=== PATIENT | female | born 1980 | race Caucasian/White ===

== ENCOUNTER 2016-12-26 17:28 | Emergency (ER) | payer OTHER ==
[~2016-12-26] VITALS: Ht 162.6 cm; Wt 51.7 kg
[~2016-12-26 17:28] MED LIST: CEPH-264 PO; INSU100I13 SQ; INSU100I17 SQ; INSU100V31 SQ; LISI10TA2 PO
[2016-12-26] MEDS ORDERED: ONDANSETRON ODT 4 MG TAB.RAPDIS PO ONE (18:00)
[2016-12-26] MEDS ORDERED: IV NORMAL SALINE 1,000ML 1,000 ML IV ONE (18:00)
[2016-12-26 19:32] LABS: BASO % 0 % (0-3); EOS % 0 % (0-3); HEMATOCRIT 38.8 % (36.0-47.0); HEMOGLOBIN 13.3 g/dL (12.0-15.5); LYMPH # 0.8 x10^3/uL (1.0-4.8); LYMPH % 11 % (24-48); MEAN CORPUSCULAR HEMOGLOBIN 34 pg (25-35); MEAN CORPUSCULAR HGB CONC 34 g/dL (31-37); MEAN CORPUSCULAR VOLUME 99 fL (79-100); MONO # 0.3 x10^3/uL (0.0-1.1); MONO % 3 % (0-9); NEUT # 6.3 x10^3uL (1.8-7.7); NEUT % 85 % (31-73); PLATELET COUNT 169 x10^3/uL (140-400); RED BLOOD COUNT 3.91 x10^6/uL (3.50-5.40); RED CELL DISTRIBUTION WIDTH 13.6 % (11.5-14.5); WHITE BLOOD COUNT 7.5 x10^3/uL (4.0-11.0)
[2016-12-26 19:40] LABS: ALBUMIN/GLOBULIN RATIO 0.8 (1.0-1.7); CREATININE 0.5 mg/dL (0.6-1.0); GFR 138.1; POTASSIUM 3.8 mmol/L (3.5-5.1); TOTAL BILIRUBIN 0.8 mg/dL (0.2-1.0); TOTAL PROTEIN 6.7 g/dL (6.4-8.2)
[2016-12-26 20:06] LABS: BILIRUBIN,URINE NEG (NEG); CLARITY,URINE CLEAR; COLOR,URINE YELLOW; GLUCOSE,URINE 500 mg/dL (NEG); NITRITE,URINE NEG (NEG); UROBILINOGEN,URINE 2 mg/dL (0.2 mg/dL)
[2016-12-26 20:07] LABS: BACTERIA,URINE 0 /HPF (0-FEW); SQUAMOUS EPITHELIAL CELL,UR FEW /LPF
[2016-12-26] MEDS ORDERED: ACETAMINOPHEN 325 MG TABLET PO ONE ×2 (21:49→22:30)
[2016-12-26 22:34] VITALS: BP 116/68
[2016-12-26] MEDS ORDERED: PROMETHAZINE 25MG 4TABLET STARTPACK. PO ONE (23:00)
--- NOTE | 2016-12-27 04:49 | ED.ADGEN ---
Past History Past Medical History: Asthma, Diabetes, Pancreatitis Past Surgical History: Cholecystectomy Alcohol Use: None Drug Use: Other Adult General Chief Complaint Chief Complaint Abdominal pain HPI HPI Patient is a 36-year-old female with history of asthma, insulin-dependent diabetes prior cholecystectomy and current methamphetamine user presents with epigastric abdominal pain. Symptoms began earlier today and accompanied with nausea vomiting. Patient has headache, chest pain, shortness of breath, fever, chills, sweats, diarrhea or constipation. Pain is worse with palpation and movement. 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 Evaluation limited as patient appears to be high on methamphetamines.[] Review of Systems Review of Systems Review symptoms as per history of present illness. All other review symptoms are negative. Current Medications Current Medications Current Medications Medications (Trade) Dose Ordered Sig/Taryn Start Time Stop Time Status Last Admin Dose Admin Acetaminophen (Tylenol) 650 mg 1X ONCE 12/26/16 22:30 12/26/16 22:31 DC 12/26/16 22:30 650 MG Ondansetron HCl (Zofran Odt) 4 mg 1X ONCE 12/26/16 18:00 12/26/16 18:01 DC 12/26/16 18:00 4 MG Promethazine HCl (Starter Pack - Phenergan) 1 startpack 1X ONCE 12/26/16 23:00 12/26/16 23:00 DC 12/26/16 22:42 1 STARTPACK Sodium Chloride 1,000 ml @ 1,000 mls/hr 1X ONCE 12/26/16 18:00 12/26/16 18:59 DC 12/26/16 19:20 1,000 MLS/HR Allergies Allergies Allergies Coded Allergies Type Severity Reaction Last Updated Verified morphine Adverse Reaction Intermediate Nausea and Vomiting 06/01/16 Yes Physical Exam Physical Exam Constitutional: Well developed, well nourished, no acute distress, non-toxic appearance. [] HENT: Normocephalic, atraumatic, bilateral external ears normal, oropharynx moist, no oral exudates, nose normal. [] Eyes: PERRLA, EOMI, conjunctiva normal, no discharge. [] Neck: Normal range of motion, no tenderness, supple, no stridor. [] Cardiovascular: Tachycardic[] Lungs & Thorax: Bilateral breath sounds clear to auscultation [] Abdomen: Bowel sounds normal, soft, no tenderness, no masses, no pulsatile masses. [] Skin: Warm, dry, no erythema, no rash. [] Back: No tenderness, no CVA tenderness. [] Extremities: No tenderness, no cyanosis, no clubbing, ROM intact, no edema. [] Neurologic: Alert and oriented X 3, normal motor function, normal sensory function, no focal deficits noted. [] Psychologic: Anxious. [] Current Patient Data Vital Signs Vital Signs Date Time Temp Pulse Resp B/P (MAP) Pulse Ox O2 Delivery O2 Flow Rate FiO2 12/26/16 22:34 128 16 116/68 (84) 97 12/26/16 17:28 100.4 Room Air Lab Results Laboratory Tests Test 12/26/16 19:00 12/26/16 19:20 12/26/16 19:42 White Blood Count 7.5 x10^3/uL (4.0-11.0) Red Blood Count 3.91 x10^6/uL (3.50-5.40) Hemoglobin 13.3 g/dL (12.0-15.5) Hematocrit 38.8 % (36.0-47.0) Mean Corpuscular Volume 99 fL (79-100) Mean Corpuscular Hemoglobin 34 pg (25-35) Mean Corpuscular Hemoglobin Concent 34 g/dL (31-37) Red Cell Distribution Width 13.6 % (11.5-14.5) Platelet Count 169 x10^3/uL (140-400) Neutrophils (%) (Auto) 85 % (31-73) H Lymphocytes (%) (Auto) 11 % (24-48) L Monocytes (%) (Auto) 3 % (0-9) Eosinophils (%) (Auto) 0 % (0-3) Basophils (%) (Auto) 0 % (0-3) Neutrophils # (Auto) 6.3 x10^3uL (1.8-7.7) Lymphocytes # (Auto) 0.8 x10^3/uL (1.0-4.8) L Monocytes # (Auto) 0.3 x10^3/uL (0.0-1.1) Eosinophils # (Auto) 0.0 x10^3/uL (0.0-0.7) Basophils # (Auto) 0.0 x10^3/uL (0.0-0.2) Sodium Level 135 mmol/L (136-145) L Potassium Level 3.8 mmol/L (3.5-5.1) Chloride Level 98 mmol/L (98-107) Carbon Dioxide Level 30 mmol/L (21-32) Anion Gap 7 (6-14) Blood Urea Nitrogen 9 mg/dL (7-20) Creatinine 0.5 mg/dL (0.6-1.0) L Estimated GFR (Cockcroft-Gault) 138.1 BUN/Creatinine Ratio 18 (6-20) Glucose Level 151 mg/dL (70-99) H Calcium Level 9.0 mg/dL (8.5-10.1) Total Bilirubin 0.8 mg/dL (0.2-1.0) Aspartate Amino Transferase (AST) 38 U/L (15-37) H Alanine Aminotransferase (ALT) 70 U/L (14-59) H Alkaline Phosphatase 212 U/L (46-116) H Troponin I Quantitative < 0.017 ng/mL (0-0.055) Total Protein 6.7 g/dL (6.4-8.2) Albumin 3.0 g/dL (3.4-5.0) L Albumin/Globulin Ratio 0.8 (1.0-1.7) L Lipase 52 U/L (73-393) L Urine Collection Type U cath Urine Color Yellow Urine Clarity Clear Urine pH 8.5 Urine Specific Sterling 1.015 Urine Protein 100 mg/dl (NEG-TRACE) Urine Glucose (UA) 500 mg/dL (NEG) Urine Ketones (Stick) 40 mg/dL (NEG) Urine Blood Neg (NEG) Urine Nitrite Neg (NEG) Urine Bilirubin Neg (NEG) Urine Urobilinogen Dipstick 2 mg/dL (0.2 mg/dL) Urine Leukocyte Esterase Neg (NEG) Urine RBC 1-2 /HPF (0-2) Urine WBC 1-4 /HPF (0-4) Urine Squamous Epithelial Cells Few /LPF Urine Bacteria 0 /HPF (0-FEW) Urine Mucus Marked /LPF POC Urine HCG, Qualitative hcg negative (Negative) EKG EKG [] Radiology/Procedures Radiology/Procedures [] Course & Med Decision Making Course & Med Decision Making Pertinent Labs and Imaging studies reviewed. (See chart for details) [Patient tachycardic and febrile with diffuse abdominal pain, tenderness. Nausea medication and Tylenol given with symptomatic improvement. Additional workup including imaging studies offered in the emergency department. Patient declines, states she feels better prefers to follow-up with PCP. Explained to the patient to the presence of methamphetamines in her system I cannot rule out a more serious diagnosis. Patient verbalizes understanding of limitations of today's evaluation. Return precautions reviewed.] Final Impression Final Impression [1 acute febrile illness 2. abdominal pain 3. nausea 3, methamphetamine abuse ] Problems: Dragon Disclaimer Dragon Disclaimer This electronic medical record was generated, in whole or in part, using a voice recognition dictation system. YRN BAUTISTA DO Dec 27, 2016 04:49
== END 2016-12-26 22:33 | disposition home or self-care (01) ==
LOC: ER 17:28
DX: F15.10 Other stimulant abuse, uncomplicated (principal); R10.13 Epigastric pain; R11.0 Nausea; R50.9 Fever, unspecified; E11.9 Type 2 diabetes mellitus without complications; J45.909 Unspecified asthma, uncomplicated; Z90.49 Acquired absence of other specified parts of digestive tract; Z79.4 Long term (current) use of insulin; Z88.5 Allergy status to narcotic agent
CPT/HCPCS: 36415; 80053; 81001; 81025; 83690; 84484; 85025; 96360; 96361; 99285; Q0162; J7030

== ENCOUNTER 2017-07-22 10:59 | Inpatient (IN) | payer OTHER ==
[~2017-07-22] VITALS: Ht 162.6 cm; Wt 49.9 kg
[2017-07-22] VITALS (10 sets, daily range): BP systolic 90–117; BP diastolic 50–77
[2017-07-22] MEDS ORDERED: IV NORMAL SALINE 1,000ML 1,000 ML IV SCH ×2 (11:05→15:24)
[2017-07-22] MEDS ORDERED: 0.9 % SODIUM CHLORIDE 10 ML DISP.SYRIN. IV PRN (11:15)
[2017-07-22] MEDS ORDERED: ONDANSETRON PF 4 MG/2 ML VIAL. IV ONE (11:45)
[2017-07-22] MEDS ORDERED: INSULIN REGULAR 100 UNIT/ML 10ML VIAL. IV ONE ×2 (11:45→12:00)
[2017-07-22] MEDS ORDERED: ONDANSETRON ODT 4 MG TAB.RAPDIS PO ONE (12:00)
[2017-07-22 12:19] LABS: BGAS PH 7.12 (7.35-7.45)
[2017-07-22] MEDS ORDERED: IV NORMAL SALINE 1,000ML 1,000 ML IV ONE (12:30)
[2017-07-22 12:34] LABS: BASO % 0 % (0-3); EOS % 0 % (0-3); HEMATOCRIT 45.8 % (36.0-47.0); HEMOGLOBIN 14.3 g/dL (12.0-15.5); LYMPH # 1.3 x10^3/uL (1.0-4.8); LYMPH % 20 % (24-48); MEAN CORPUSCULAR HEMOGLOBIN 34 pg (25-35); MEAN CORPUSCULAR HGB CONC 31 g/dL (31-37); MEAN CORPUSCULAR VOLUME 109 fL (79-100); MONO # 0.3 x10^3/uL (0.0-1.1); MONO % 5 % (0-9); NEUT # 4.8 x10^3uL (1.8-7.7); NEUT % 75 % (31-73); PLATELET COUNT 272 x10^3/uL (140-400); RED BLOOD COUNT 4.21 x10^6/uL (3.50-5.40); RED CELL DISTRIBUTION WIDTH 16.2 % (11.5-14.5); WHITE BLOOD COUNT 6.5 x10^3/uL (4.0-11.0)
[2017-07-22 12:44] LABS: ALBUMIN 3.6 g/dL (3.4-5.0); ALBUMIN/GLOBULIN RATIO 0.9 (1.0-1.7); ALK PHOS 347 U/L (46-116); ALT (SGPT) 126 U/L (14-59); ANION GAP 32 (6-14); AST (SGOT) 43 U/L (15-37); BLOOD UREA NITROGEN 24 mg/dL (7-20); BUN/CREATININE RATIO 27 (6-20); CALCIUM 9.5 mg/dL (8.5-10.1); CHLORIDE 90 mmol/L (98-107); CREATININE 0.9 mg/dL (0.6-1.0); GFR 69.7; LIPASE 78 U/L (73-393); MAGNESIUM 2.1 mg/dL (1.8-2.4); POTASSIUM 4.8 mmol/L (3.5-5.1); SODIUM 130 mmol/L (136-145); TOTAL PROTEIN 7.4 g/dL (6.4-8.2)
--- NOTE | 2017-07-22 12:46 | PHYS DOC ---
Past History Past Medical History: Asthma, Diabetes, Pancreatitis Past Surgical History: Cholecystectomy Smoking: Cigarettes Alcohol Use: None Drug Use: Other Adult General Chief Complaint Chief Complaint: BLOOD SUGAR PROBLEM HPI HPI 37-year-old female patient with history of type 1 diabetes mellitus on insulin and IV methamphetamine abuse states she had her insulin last night by her boyfriend but this morning she was not unable to find her insulin and had multiple episodes of vomiting and abdominal pain and generalized weakness. Patient states she had history of previous hospitalization with DKA. She denies fever and chills, chest pain, shortness of breath, urinary symptom, focal neuro deficit. Review of Systems Review of Systems Constitutional: Denies fever or chills [] Eyes: Denies change in visual acuity, redness, or eye pain [] HENT: Denies nasal congestion or sore throat [] Respiratory: Denies cough or shortness of breath [] Cardiovascular: No additional information not addressed in HPI [] GI: Reports abdominal pain, nausea, vomiting, denies bloody stools or diarrhea [ ] : Denies dysuria or hematuria [] Musculoskeletal: Denies back pain or joint pain [] Integument: Denies rash or skin lesions [] Neurologic: Denies headache, focal weakness or sensory changes [] Endocrine: Denies polyuria or polydipsia [] All other systems were reviewed and found to be within normal limits, except as documented in this note. Current Medications Current Medications Current Medications Medications (Trade) Dose Ordered Sig/Taryn Start Time Stop Time Status Last Admin Dose Admin Insulin Human Regular (NovoLIN R) 20 unit 1X ONCE 07/22/17 12:00 07/22/17 12:01 DC 07/22/17 11:39 20 UNIT Insulin Human Regular 150 unit/ Sodium Chloride 151.5 ml @ 5 mls/hr 1X ONCE 07/22/17 13:00 07/23/17 19:17 Ondansetron HCl (Zofran Odt) 8 mg 1X ONCE 07/22/17 12:00 07/22/17 12:01 DC 07/22/17 11:41 8 MG Ondansetron HCl (Zofran) 4 mg 1X ONCE 07/22/17 11:45 07/22/17 11:46 DC 07/22/17 12:12 4 MG Sodium Chloride 1,000 ml @ 1,000 mls/hr 1X ONCE 07/22/17 12:30 07/22/17 13:29 Sodium Chloride (Normal Saline Flush) 10 ml QSHIFT PRN 07/22/17 11:15 Allergies Allergies Allergies Coded Allergies Type Severity Reaction Last Updated Verified morphine Adverse Reaction Intermediate Nausea and Vomiting 06/01/16 Yes Physical Exam Physical Exam Constitutional: Moderate distress, non-toxic appearance. [] HENT: Normocephalic, atraumatic, oropharynx dry Eyes: PERRLA, EOMI, conjunctiva normal, no discharge. [] Neck: Normal range of motion, no tenderness, supple, no stridor. [] Cardiovascular:Heart rate regular rhythm, no murmur [] Lungs & Thorax: Bilateral breath sounds clear to auscultation [] Abdomen: Bowel sounds normal, soft, no tenderness, no masses, no pulsatile masses. [] Skin: Warm, dry, no erythema, no rash. [] Back: No tenderness, no CVA tenderness. [] Extremities: No tenderness, no cyanosis, no clubbing, ROM intact, no edema. [] Neurologic: Alert and oriented X 3, normal motor function, normal sensory function, no focal deficits noted. [] Psychologic: Anxious Current Patient Data Lab Results Laboratory Tests Test 07/22/17 12:00 White Blood Count 6.5 x10^3/uL (4.0-11.0) Red Blood Count 4.21 x10^6/uL (3.50-5.40) Hemoglobin 14.3 g/dL (12.0-15.5) Hematocrit 45.8 % (36.0-47.0) Mean Corpuscular Volume 109 fL (79-100) H Mean Corpuscular Hemoglobin 34 pg (25-35) Mean Corpuscular Hemoglobin Concent 31 g/dL (31-37) Red Cell Distribution Width 16.2 % (11.5-14.5) H Platelet Count 272 x10^3/uL (140-400) Neutrophils (%) (Auto) 75 % (31-73) H Lymphocytes (%) (Auto) 20 % (24-48) L Monocytes (%) (Auto) 5 % (0-9) Eosinophils (%) (Auto) 0 % (0-3) Basophils (%) (Auto) 0 % (0-3) Neutrophils # (Auto) 4.8 x10^3uL (1.8-7.7) Lymphocytes # (Auto) 1.3 x10^3/uL (1.0-4.8) Monocytes # (Auto) 0.3 x10^3/uL (0.0-1.1) Eosinophils # (Auto) 0.0 x10^3/uL (0.0-0.7) Basophils # (Auto) 0.0 x10^3/uL (0.0-0.2) Blood pH 7.12 (7.35-7.45) *L Blood Gas PCO2 24 mmHg (35-45) L Blood Gas PO2 102 mmHg (80-100) H Blood Gas HCO3 8 mmol/L (22-26) L Arterial Bld O2 Saturation (Calc) 96 % (92-99) FiO2 21 % Acetone Level Mod pos (NEG) EKG EKG [] Radiology/Procedures Radiology/Procedures [] Course & Med Decision Making Course & Med Decision Making Pertinent Labs reviewed. (See chart for details) Evaluation of patient in ER showed 37-year-old male patient with history of IV drug abuse and type 1 diabetes complaining of high blood sugar and mesentery insulin. Patient had sign of DKA tachycardia and dry oral mucosa. Patient was very [place] and treated with oral Zofran and insulin subcutaneous before having the IV line accessed but she vomited the medication. Patient had IV access and had IV insulin and IV fluid with Zofran and was able to fall asleep. Insulin drip was started and patient admitted to ICU. Dr. Shah informed at 1235 and agreed with plan of care. Dragon Disclaimer Dragon Disclaimer This electronic medical record was generated, in whole or in part, using a voice recognition dictation system. Departure Departure: Impression: Primary Impression: DKA (diabetic ketoacidoses) Additional Impressions: Methamphetamine abuse Nausea and vomiting Renal insufficiency Noncompliance with diabetes treatment Abnormal liver function tests Disposition: 09 ADMITTED INPATIENT (at 1235) Admitting Physician: Juan Shah Condition: GUARDED Referrals: PCP,TERESA (PCP) Critical Care Time Critical care time was [90] minutes exclusive of procedures. Problem Qualifiers MATTHIEU MIRZA MD Jul 22, 2017 12:46
[2017-07-22 12:47] LABS: GLUCOSE 748 mg/dL (70-99)
[2017-07-22 12:48] LABS: CARBON DIOXIDE 8 mmol/L (21-32)
[2017-07-22] MEDS: IV NORMAL SALINE 1,000ML 1,000 ML IV SCH ×3 (12:48→22:48)
[2017-07-22] MEDS ORDERED: ONDANSETRON PF 4 MG/2 ML VIAL. IV PRN (13:00)
[2017-07-22] MEDS ORDERED: INSULIN REGULAR 150 UNIT in 0.9 % SODIUM CHLORIDE 150ML 150 ML IV ONE (13:00)
[2017-07-22] MEDS ORDERED: INSULIN REGULAR 150 UNIT in 0.9 % SODIUM CHLORIDE 150ML 150 ML IV PRN ×2 (13:00→15:30)
[2017-07-22 14:44] LABS: BARBITURATES NEG (NEG); BENZODIAZEPINES NEG (NEG); CANNABINOIDS NEG (NEG); COCAINE NEG (NEG); METHADONE NEG (NEG); OPIATES NEG (NEG); PHENCYCLIDINE NEG (NEG)
[2017-07-22 14:45] LABS: AMPHETAMINE/METHAMPHETAMINE POS (NEG)
[2017-07-22 14:54] LABS: BILIRUBIN,URINE NEG (NEG); CLARITY,URINE CLOUDY; COLOR,URINE YELLOW; GLUCOSE,URINE 500 mg/dL (NEG); NITRITE,URINE NEG (NEG); RBC,URINE TNTC /HPF (0-2); UROBILINOGEN,URINE 0.2 mg/dL (0.2 mg/dL)
[2017-07-22 14:55] LABS: BACTERIA,URINE 0 /HPF (0-FEW); SQUAMOUS EPITHELIAL CELL,UR OCC /LPF; U PREG PATIENT NEGATIVE (NEG)
[2017-07-22] MEDS ORDERED: MAGNESIUM SULFATE 2GM 50 ML IV PRN (15:30)
[2017-07-22 18:32] LABS: CALCIUM 8.2 mg/dL (8.5-10.1); GFR 61.7; POTASSIUM 4.5 mmol/L (3.5-5.1)
--- NOTE | 2017-07-22 19:08 | PN ---
DATE: 07/22/2017 HISTORY OF PRESENT ILLNESS: The patient is a 37-year-old female patient who came to the Emergency Room complaining of recurrent bouts of nausea and vomiting, and was found to be in diabetic ketoacidosis. Her toxic screen is positive for methamphetamine, and she was found also to be in impaired liver enzymes. The patient was very drowsy and sleepy, does not give any useful information. PAST MEDICAL HISTORY: Significant for type 1 diabetes, bronchial asthma, and hypertension. PAST SURGICAL HISTORY: Unremarkable. FAMILY HISTORY: Unobtainable. 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 She smokes 1 pack per day. She has methamphetamine problem, had been clean for a few years, but has relapsed recently. Denies any other drug abuse. ALLERGIES: SHE IS ALLERGIC TO MORPHINE. MEDICATIONS: She is currently on following medications: She is on cephalexin 500 mg 3 times a day, lisinopril 10 mg once a day. She is on NovoLog FlexPen 8 units before meals and Lantus SoloSTAR insulin 20 units at bedtime. REVIEW OF SYSTEMS: As per history of present illness, mainly nausea, vomiting, and abdominal pain. PHYSICAL EXAMINATION: GENERAL: When I examined her, she was resting, slightly propped up in bed, no apparent distress. No pallor, jaundice, cyanosis, or thyromegaly. No jugular venous distension. No limb edema. VITAL SIGNS: Her heart rate was 125, blood pressure was 101/67, temperature was 97.7, respiratory rate was 18 and oxygen saturation was 94% on room air. HEAD, EYES, EARS, NOSE, AND THROAT: Showed normocephalic, atraumatic. NECK: Supple. HEART: Showed normal first and second heart sounds with no gallop, rub or murmur. CHEST: Clear to auscultation. No crepitation or rhonchi. ABDOMEN: Scaphoid, soft, nontender. NEUROLOGIC: She was somewhat lethargic, but arousable. She opens eyes and drifts back to sleep. However, all her cranial nerves are intact. EXTREMITIES: She moves extremities without difficulty. LABORATORY AND DIAGNOSTIC DATA: While in the Emergency Room, she had lab works including white cell count of 6500, hemoglobin 14, hematocrit 45, MCV 109 and platelet count of 272,000. Her blood gases showed a pH of 7.12, pCO2 of 24, pO2 102, bicarbonate 8, and oxygen saturation was 96% on room air. Chemistry showed serum sodium of 130, potassium 4.8, chloride 90, bicarbonate 8, anion gap of 32, BUN 24, creatinine 0.9, estimated GFR was 69 mL per minute. Her glucose was 748. Her calcium was 9.5, phosphorus 6, magnesium was 2.1. Total bilirubin is normal. AST, ALT, alkaline phosphatase are all elevated. Her total protein was 7.4, albumin was 3.6. Serum lipase was 78. Urinalysis showed urine was yellow, cloudy with pH of 5, specific gravity of 1.020. The urine showed trace of protein, large amount of glucose, large amount of ketones, large amount of blood, negative for nitrite and leukocyte esterase, too numerous to count rbc's, 1-4 wbc's, occasional squamous epithelial cells and negative bacteria. Her urine toxicology screen was positive for methamphetamine and moderate amount of acetone, negative for all other drugs. ASSESSMENT AND PLAN: In summary, this is a 37-year-old female patient who yet again came with another episode of diabetic ketoacidosis. She was positive ____ methamphetamine drug abuse. She was always in diabetic ketoacidosis. She was started on IV fluid and insulin drip as per diabetic ketoacidosis protocol. She obviously has noncompliance with diabetes treatment and renal insufficiency. We will monitor her blood sugar and electrolytes and replenish as needed. DANIELE VERDUZCO MD DR: SJ/philip JOB#: [id number] / [id number]
[2017-07-22 22:07] LABS: CALCIUM 7.6 mg/dL (8.5-10.1); CREATININE 0.8 mg/dL (0.6-1.0); GFR 79.9; POTASSIUM 4.1 mmol/L (3.5-5.1)
[2017-07-22] MEDS: IV DEXTROSE 5 %-0.45 % NACL 1,000 ML IV SCH (23:28)
[2017-07-23] VITALS (13 sets, daily range): BP systolic 90–123; BP diastolic 55–84
[2017-07-23 01:32] LABS: CALCIUM 7.3 mg/dL (8.5-10.1); CREATININE 0.9 mg/dL (0.6-1.0); GFR 69.7
[2017-07-23] MEDS: IV DEXTROSE 5 %-0.45 % NACL 1,000 ML IV SCH (03:10)
[2017-07-23] MEDS: IV NORMAL SALINE 1,000ML 1,000 ML IV SCH ×4 (03:48→16:54)
[2017-07-23 06:46] LABS: CALCIUM 7.5 mg/dL (8.5-10.1); CREATININE 0.8 mg/dL (0.6-1.0); GFR 79.9; POTASSIUM 3.4 mmol/L (3.5-5.1)
[2017-07-23] MEDS: INSULIN ASPART 300 UNITS/3 ML INSULN.PEN SQ SCH ×3 (07:30→16:24)
[2017-07-23] MEDS ORDERED: INSULIN ASPART 300 UNITS/3 ML INSULN.PEN SQ SCH (07:30)
[2017-07-23] MEDS ORDERED: IV NORMAL SALINE 1,000ML 1,000 ML IV ONE (07:45)
[2017-07-23] MEDS: POTASSIUM CHLORIDE 20 MEQ TABLET.ER. PO SCH (07:49)
[2017-07-23] MEDS: INSULIN ASPART 300 UNITS/3 ML INSULN.PEN SQ PRN (11:12)
[2017-07-23] MEDS ORDERED: INSULIN GLARGINE 300 UNITS/3 ML INSULN.PEN. SQ SCH (21:00)
[2017-07-24] VITALS: BP 120/81
--- NOTE | 2017-07-24 00:02 | PN ---
DATE: 07/23/2017 SUBJECTIVE: The patient is resting flat, comfortably in bed, in no apparent distress, sleepy, but arousable. Questioning her, denied any complaint except that she is tired. Her blood sugar has improved. Her anion gap has normalized. PHYSICAL EXAMINATION: GENERAL: When I examined her this morning, she looked well and was clearly in no apparent respiratory distress, no pallor, jaundice, cyanosis, or thyromegaly. No jugular venous distension. No lower limb edema. VITAL SIGNS: Her heart rate was 101, blood pressure 109/68, temperature was 98.2, respiratory rate was 16 and oxygen saturation was 99% on 2 liters of oxygen. HEAD, EYES, EARS, NOSE AND THROAT: Showed normocephalic, atraumatic. NECK: Supple. HEART: Showed normal first and second heart sounds. No gallop, rub or murmur. CHEST: Clear to auscultation. No crepitation or rhonchi. ABDOMEN: Slightly distended, soft, nontender. NEUROLOGIC: She is sleepy, but arousable. All cranial nerves intact. She moves extremities without difficulty. She ambulates without assistance or assistive devices. Her intake over the last 24 hours was 3040, output was 1450. LABORATORY DATA: As of this morning showed that her serum sodium was 138, potassium 3.4, chloride 107, bicarbonate 21, anion gap of 10, BUN 10, creatinine 0.8. Estimated GFR was 80 mL per minute. Her glucose 125 and calcium was 7.5. ASSESSMENT: 1. Diabetic ketoacidosis. 2. Type 1 diabetes mellitus. 3. Methamphetamine abuse disorder. 4. Noncompliance with diabetes treatment. 5. Renal insufficiency. Her creatinine came down from 1-0.8 and her BUN is down from 24-10. PLAN: Blood sugar normalized. The patient should be back on her scheduled NovoLog and Lantus insulin. Encouraged ambulation. If the patient remains stable later today, she can be discharged home. DANIELE VERDUZCO MD DR: SJ/philip JOB#: [id number] / [id number]
[2017-07-24 03:00] VITALS: BP 119/76
[2017-07-24] MEDS: INSULIN ASPART 300 UNITS/3 ML INSULN.PEN SQ PRN (03:30)
[2017-07-24 06:30] VITALS: BP 112/70
[2017-07-24 06:32] LABS: CALCIUM 7.8 mg/dL (8.5-10.1); CREATININE 0.5 mg/dL (0.6-1.0); GFR 137.4; POTASSIUM 3.6 mmol/L (3.5-5.1)
[2017-07-24] MEDS: POTASSIUM CHLORIDE 20 MEQ TABLET.ER. PO SCH (07:49)
[2017-07-24] MEDS: INSULIN ASPART 300 UNITS/3 ML INSULN.PEN SQ SCH (08:37)
--- NOTE | 2017-07-25 00:11 | DS ---
DATE OF DISCHARGE: 07/24/2017 HOSPITAL COURSE: The patient is a 37-year-old female patient, who was admitted originally with diabetic ketoacidosis, recurrent bouts of nausea and vomiting, and she was started on IV fluid and insulin drip and she did well. Her glucose is much better now. Her anion gap was normalized from 32 to 6. Her creatinine came down also from 1 to 0.5. PHYSICAL EXAMINATION: GENERAL: She was awake and alert. When I examined her this morning, she was sitting up in her chair, in her bed in no apparent distress, slightly pale, but no jaundice, cyanosis, or thyromegaly. No jugular venous distension. No lower limb edema. VITAL SIGNS: Her heart rate was 88, blood pressure was 112/70, temperature was 98.2, respiratory rate was 18, and oxygen saturation was 97% on room air. HEAD, EYES, EARS, NOSE AND THROAT: Normocephalic, atraumatic. NECK: Supple. HEART: Showed normal first and second heart sounds with no gallop, rub or murmur. CHEST: Clear to auscultation. No crepitation or rhonchi. ABDOMEN: Scaphoid, soft, nontender. NEUROLOGIC: She is awake, alert, responding appropriately. Cranial nerves intact. EXTREMITIES: She moves extremities without difficulty. She ambulates without assistance or assistive devices. Her intake was 3900, output was 5325. LABORATORY DATA: This morning showed a serum sodium of 140, potassium 3.6, chloride 107, bicarbonate 27, anion gap of 6, BUN 6, creatinine 0.5, estimated GFR was 137 mL per minute, her glucose was 73, calcium was 7.8. Her white cell count was 6500, hemoglobin 14, hematocrit 44, MCV 109 and platelet count of 272,000. DISCHARGE MEDICATIONS: She will be discharged home to continue on NovoLog insulin 8 units subcutaneously before meals and Lantus insulin 20 units at bedtime, lisinopril 10 mg once a day. FINAL DISCHARGE DIAGNOSES: 1. Diabetic ketoacidosis. 2. Type 1 diabetes mellitus, poorly controlled due to noncompliance. 3. Methamphetamine abuse. 4. Nausea and vomiting. DANIELE VERDUZCO MD DR: SJ/philip JOB#: [id number] / [id number]
== END 2017-07-24 11:55 | disposition home or self-care (01) | DRG 682 ==
LOC: ER 10:59 → ICU 14:01
PROVIDERS: ADMIT Internal Medicine; ATTEND Internal Medicine
DX: N17.0 Acute kidney failure with tubular necrosis (principal); E10.10 Type 1 diabetes mellitus with ketoacidosis without coma; F15.10 Other stimulant abuse, uncomplicated; F17.210 Nicotine dependence, cigarettes, uncomplicated; I10 Essential (primary) hypertension; R94.5 Abnormal results of liver function studies; J45.909 Unspecified asthma, uncomplicated; Z79.4 Long term (current) use of insulin; Z91.19 Patient's noncompliance with other medical treatment and regimen; Z88.8 Allergy status to other drugs, medicaments and biological substances; Z90.49 Acquired absence of other specified parts of digestive tract
CPT/HCPCS: 36415; 80048; 80053; 80307; 81001; 81025; 82010; 82553; 82803; 82947; 83690; 83735; 84100; 84484; 85025; 87641; 96361; 96374; 96375; 96376; 99292; 99406; J1815; J2405; Q0162; 99291-25; G0479; J7030

== ENCOUNTER 2017-09-20 07:11 | Emergency (ER) | payer OTHER ==
[~2017-09-20] VITALS: Ht 162.6 cm; Wt 49.9 kg
[2017-09-20] MEDS ORDERED: IV NORMAL SALINE 1,000ML 1,000 ML IV SCH (07:30)
[2017-09-20] MEDS ORDERED: ONDANSETRON PF 4 MG/2 ML VIAL. IV ONE (07:30)
[2017-09-20] MEDS ORDERED: IV NORMAL SALINE 1,000ML 1,000 ML IV ONE ×2 (07:30→08:30)
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
[2017-09-20] MEDS ORDERED: CLINDAMYCIN 600MG PREMIX 50 ML IV ONE (07:45)
[2017-09-20 08:00] LABS: BASO % 1 % (0-3); EOS % 1 % (0-3); HEMATOCRIT 45.8 % (36.0-47.0); HEMOGLOBIN 15.2 g/dL (12.0-15.5); LYMPH # 1.1 x10^3/uL (1.0-4.8); LYMPH % 28 % (24-48); MEAN CORPUSCULAR HEMOGLOBIN 34 pg (25-35); MEAN CORPUSCULAR HGB CONC 33 g/dL (31-37); MEAN CORPUSCULAR VOLUME 102 fL (79-100); MONO # 0.3 x10^3/uL (0.0-1.1); MONO % 7 % (0-9); NEUT # 2.5 x10^3uL (1.8-7.7); NEUT % 64 % (31-73); PLATELET COUNT 177 x10^3/uL (140-400); RED BLOOD COUNT 4.49 x10^6/uL (3.50-5.40); WHITE BLOOD COUNT 3.8 x10^3/uL (4.0-11.0)
--- NOTE | 2017-09-20 08:11 | EKG ---
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
[2017-09-20 08:14] LABS: ALBUMIN 3.1 g/dL (3.4-5.0); ALBUMIN/GLOBULIN RATIO 0.9 (1.0-1.7); CALCIUM 8.1 mg/dL (8.5-10.1); CREATININE 0.9 mg/dL (0.6-1.0); GFR 69.7; POTASSIUM 3.6 mmol/L (3.5-5.1); TOTAL BILIRUBIN 0.6 mg/dL (0.2-1.0); TOTAL PROTEIN 6.6 g/dL (6.4-8.2)
[2017-09-20 08:26] LABS: BGAS PH 7.18 (7.35-7.45)
[2017-09-20] MEDS ORDERED: INSULIN REGULAR VIAL 150 UNIT in 0.9 % SODIUM CHLORIDE 150ML 150 ML IV ONE (08:30)
--- NOTE | 2017-09-20 08:51 | RAD ---
EXAM: Chest, single view. HISTORY: Shortness of breath. COMPARISON: None. FINDINGS: A frontal view of the chest is obtained. There is no infiltrate, effusion or pneumothorax. The heart is normal in size. There are anastomotic sutures within the right lung apex. IMPRESSION: 1. No acute pulmonary finding. 2. Postoperative changes at the right lung apex. Electronically signed by: Luisa Dugan MD (09/20/2017 8:48 AM) [place] [id number]
[2017-09-20 09:16] LABS: AMPHETAMINE/METHAMPHETAMINE POS (NEG); BARBITURATES NEG (NEG); BENZODIAZEPINES NEG (NEG); CANNABINOIDS NEG (NEG); COCAINE NEG (NEG); METHADONE NEG (NEG); OPIATES NEG (NEG); PHENCYCLIDINE NEG (NEG)
[2017-09-20 09:18] LABS: AMYLASE 25 U/L (25-115); LIPASE 127 U/L (73-393)
[2017-09-20 09:23] LABS: BILIRUBIN,URINE NEG (NEG); CLARITY,URINE CLOUDY; COLOR,URINE YELLOW; GLUCOSE,URINE 500 mg/dL (NEG); NITRITE,URINE NEG (NEG); UROBILINOGEN,URINE 0.2 mg/dL (0.2 mg/dL)
[2017-09-20 09:25] LABS: BACTERIA,URINE 0 /HPF (0-FEW); GRANULAR CASTS,URINE OCC /HPF; RBC,URINE OCC /HPF (0-2); SQUAMOUS EPITHELIAL CELL,UR OCC /LPF; WBC,URINE OCC /HPF (0-4)
[2017-09-20 09:26] LABS: HYALINE CASTS, URINE OCC /HPF; U PREG PATIENT NEGATIVE (NEG)
[2017-09-20 09:32] VITALS: BP 121/80
== END 2017-09-20 09:50 | disposition short-term general hospital (02) ==
LOC: ER 07:11
DX: E11.10 Type 2 diabetes mellitus with ketoacidosis without coma (principal); E86.0 Dehydration; S91.002A Unspecified open wound, left ankle, initial encounter; J45.909 Unspecified asthma, uncomplicated; F17.210 Nicotine dependence, cigarettes, uncomplicated; Z88.5 Allergy status to narcotic agent; Z91.041 Radiographic dye allergy status; X58.XXXA Exposure to other specified factors, initial encounter; Y93.89 Activity, other specified; Y99.8 Other external cause status; Y92.89 Other specified places as the place of occurrence of the external cause
CPT/HCPCS: 36415; 36600; 51702; 71045; 80053; 80307; 81001; 81025; 82010; 82150; 82803; 82947; 83605; 83690; 85025; 87040; 93005; 96361; 96365; 96375; 99291; G0480; J1815; J2405; J3490; G0479; J7030

== ENCOUNTER 2018-09-23 12:17 | Emergency (ER) | payer OTHER ==
[2018-09-23 12:32] LABS: BGAS PH 6.94 (7.35-7.45)
[2018-09-23] MEDS: IV NORMAL SALINE 1,000ML 1,000 ML IV SCH ×3 (12:42→15:20)
[2018-09-23] MEDS ORDERED: INSULIN REGULAR VIAL 150 UNIT in 0.9 % SODIUM CHLORIDE 150ML 150 ML IV ONE (12:45)
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
[2018-09-23] MEDS ORDERED: PIPERACILLIN/TAZOBACTAM 4.5 GM in IV NORMAL SALINE 50ML 50 ML IV ONE (13:00)
--- NOTE | 2018-09-23 13:07 | RAD ---
Portable chest, 09/23/2018: HISTORY: Diabetic ketoacidosis Comparison is made to a study from 09/20/2017. The heart size is normal. The patient is rotated to the right. There are surgical sutures in the right apical region medially. No pulmonary infiltrate is seen. There is no evidence of pleural fluid. IMPRESSION: No acute cardiopulmonary abnormality is detected. Electronically signed by: Misael Dill MD (09/23/2018 1:04 PM) [facility]
[2018-09-23] MEDS ORDERED: IV NORMAL SALINE 50ML 50 ML ONE (13:21)
[2018-09-23] MEDS ORDERED: PIPERACILLIN/TAZOBACTAM 4.5 GM VIAL IV ONE (13:21)
[2018-09-23 13:24] LABS: PREG TEST PT QUAL NEGATIVE (NEG)
[2018-09-23 13:34] LABS: ALBUMIN/GLOBULIN RATIO 0.8 (1.0-1.7); ALK PHOS 436 U/L (46-116); ALT (SGPT) 201 U/L (14-59); AST (SGOT) 120 U/L (15-37); BASO # 0.1 x10^3/uL (0.0-0.2); BASO % 1 % (0-3); BLOOD UREA NITROGEN 49 mg/dL (7-20); BUN/CREATININE RATIO 31 (6-20); CALCIUM 7.7 mg/dL (8.5-10.1); CHLORIDE 92 mmol/L (98-107); CREATININE 1.6 mg/dL (0.6-1.0); EOS % 0 % (0-3); GFR 35.7; HEMATOCRIT 41.5 % (36.0-47.0); HEMOGLOBIN 12.3 g/dL (12.0-15.5); LYMPH # 1.6 x10^3/uL (1.0-4.8); LYMPH % 13 % (24-48); MEAN CORPUSCULAR HEMOGLOBIN 35 pg (25-35); MEAN CORPUSCULAR HGB CONC 30 g/dL (31-37); MEAN CORPUSCULAR VOLUME 118 fL (79-100); MONO # 0.2 x10^3/uL (0.0-1.1); MONO % 2 % (0-9); NEUT # 10.4 x10^3uL (1.8-7.7); NEUT % 85 % (31-73); PLATELET COUNT 311 x10^3/uL (140-400); POTASSIUM 4.7 mmol/L (3.5-5.1); RED BLOOD COUNT 3.53 x10^6/uL (3.50-5.40); RED CELL DISTRIBUTION WIDTH 15.8 % (11.5-14.5); SODIUM 129 mmol/L (136-145); TOTAL BILIRUBIN 0.7 mg/dL (0.2-1.0); TOTAL PROTEIN 4.6 g/dL (6.4-8.2); WHITE BLOOD COUNT 12.2 x10^3/uL (4.0-11.0)
[2018-09-23 13:47] LABS: BILIRUBIN,URINE NEG (NEG); CLARITY,URINE HAZY; COLOR,URINE YELLOW; GLUCOSE,URINE 500 mg/dL (NEG)
[2018-09-23 13:48] LABS: AMORPHOUS SEDIMENT,UR PRESENT /HPF; BACTERIA,URINE MOD /HPF (0-FEW); NITRITE,URINE NEG (NEG); SQUAMOUS EPITHELIAL CELL,UR OCC /LPF; UROBILINOGEN,URINE 0.2 mg/dL (0.2 mg/dL); WBC,URINE OCC /HPF (0-4)
[2018-09-23 13:54] LABS: ANION GAP 32 (6-14); CARBON DIOXIDE < 5 mmol/L (21-32)
[2018-09-23 13:55] LABS: GLUCOSE 876 mg/dL (70-99)
[2018-09-23 14:21] LABS: PLT ESTIMATE ADEQUATE (ADEQUATE)
--- NOTE | 2018-09-23 15:10 | EKG ---
[address] [address] Test Date: 2018-09-23 Test Time: 12:25:36 Pat Name: MIKAYLA ALEJANDRA Department: Room: Gender: F Shade Maker: NAN : 1980 Requested By: YOLA LYMAN Order Number: [id number] Reading MD: Measurements Intervals [place] Rate: 87 P: 59 W[place]: 142 QRS: 71 QRSD: 82 T: 46 QT: 406 QTc: 489 Interpretive Statements SINUS RHYTHM PROLONGED QT NO SPECIFIC ECG ABNORMALITIES RI6.01 No previous ECG available for comparison
--- NOTE | 2018-09-23 15:22 | RAD ---
CT of the head without contrast, 09/23/2018: HISTORY: Altered mental status The ventricles are within normal limits in size. There is no shift of the midline structures. A 3 mm focus of increased density is seen centrally in the анна on one axial image. There is no other evidence of intracranial hemorrhage or mass effect. No abnormal extra-axial fluid collection or mass is seen. IMPRESSION: 1. Tiny focus of increased density centrally in the анна raising the possibility of a small hemorrhage versus a calcification. Since this finding is only evident on one image, it could potentially be an artifact. MR scanning is suggested for further evaluation. 2. The noncontrast CT head is otherwise unremarkable. Electronically signed by: Misael Dill MD (09/23/2018 3:19 PM) [facility]
[2018-09-23] MEDS ORDERED: SODIUM BICARB ADULT 8.4% 50 MEQ/50 ML DISP.SYRIN. ONE (16:26)
[2018-09-23] MEDS ORDERED: SODIUM BICARB ADULT 8.4% 50 MEQ/50 ML DISP.SYRIN. IV ONE (16:30)
[2018-09-23 16:35] VITALS: BP 116/62
== END 2018-09-23 16:30 | disposition short-term general hospital (02) ==
LOC: ER 12:17 → EEVIPCON 12:17 → ER 16:30
DX: E10.11 Type 1 diabetes mellitus with ketoacidosis with coma (principal); T68.XXXA Hypothermia, initial encounter; F17.210 Nicotine dependence, cigarettes, uncomplicated; Z91.041 Radiographic dye allergy status; Z88.5 Allergy status to narcotic agent
CPT/HCPCS: 36415; 36600; 51702; 70450; 71045; 80053; 81001; 82010; 82803; 82947; 83605; 84484; 84703; 85025; 87040; 87086; 93005; 96365; 96366; 96368; 96375; 99291; J1815; J2543; J7030

== ENCOUNTER 2019-04-04 11:22 | Emergency (ER) | payer SELFPAY ==
[~2019-04-04] VITALS: Ht 162.6 cm; Wt 50.0 kg
[~2019-04-04 11:22] MED LIST changes: +GABA300C8 PO; +METO10TA81 PO
[2019-04-04] MEDS ORDERED: IV NORMAL SALINE 1,000ML 1,000 ML IV SCH (11:40)
[2019-04-04] MEDS ORDERED: ONDANSETRON PF 4 MG/2 ML VIAL. IVP ONE (11:45)
[2019-04-04 12:04] LABS: BASO % 1 % (0-3); EOS % 1 % (0-3); HEMATOCRIT 44.1 % (36.0-47.0); HEMOGLOBIN 14.9 g/dL (12.0-15.5); LYMPH # 1.2 x10^3/uL (1.0-4.8); LYMPH % 31 % (24-48); MEAN CORPUSCULAR HEMOGLOBIN 32 pg (25-35); MEAN CORPUSCULAR HGB CONC 34 g/dL (31-37); MEAN CORPUSCULAR VOLUME 96 fL (79-100); MONO # 0.3 x10^3/uL (0.0-1.1); MONO % 8 % (0-9); NEUT # 2.4 x10^3uL (1.8-7.7); NEUT % 59 % (31-73); PLATELET COUNT 266 x10^3/uL (140-400); RED BLOOD COUNT 4.61 x10^6/uL (3.50-5.40); RED CELL DISTRIBUTION WIDTH 12.9 % (11.5-14.5)
[2019-04-04 12:19] LABS: CALCIUM 9.5 mg/dL (8.5-10.1); CREATININE 0.8 mg/dL (0.6-1.0); GFR 79.4; POTASSIUM 3.8 mmol/L (3.5-5.1)
--- NOTE | 2019-04-04 12:23 | PHYS DOC ---
Past History Past Medical History: Asthma, Diabetes, Hypertension, Other Past Surgical History: Cholecystectomy, Tubal ligation, Other Smoking: Cigarettes Alcohol Use: None Drug Use: Methamphetamine Adult General Chief Complaint Chief Complaint: DIZZY/LIGHT HEADED HPI HPI Patient is a 38-year-old female who presents with complaint of feeling lightheaded and weak. Patient states that she has been noting elevated blood sugar at home last few days and states that she just ran out of her test strips. Patient states that she has had diarrhea for about a week and yesterday she started with nausea and vomiting. She states that she's been having difficulty in keeping anything down and is afraid to use too much insulin since she ran out of her test strips. She does indicate that she's got some cramping in her abdomen that she rates as moderate. She denies any chest pain or shortness breath. She also denies any fever. Patient states that symptoms are worsened if she tries to eat or drink.[] Review of Systems Review of Systems Constitutional: Denies fever or chills [] Respiratory: Denies cough or shortness of breath [] Cardiovascular: No additional information not addressed in HPI [] GI: Complains of abdominal cramping with vomiting and diarrhea [] Integument: Denies rash or skin lesions [] Neurologic: Denies headache, focal weakness or sensory changes [] All other systems were reviewed and found to be within normal limits, except as documented in this note. Current Medications Current Medications Current Medications Medications (Trade) Dose Ordered Sig/Taryn Start Time Stop Time Status Last Admin Dose Admin Ondansetron HCl (Zofran) 4 mg 1X ONCE 04/04/19 11:45 04/04/19 11:46 DC 04/04/19 11:45 4 MG Sodium Chloride 1,000 ml @ 1,000 mls/hr Q1H 04/04/19 11:40 04/04/19 12:39 04/04/19 11:40 1,000 MLS/HR Allergies Allergies Allergies Coded Allergies Type Severity Reaction Last Updated Verified I S O L A T I O N *CONTACT* Allergy Unknown 11/11/18 Yes morphine Adverse Reaction Intermediate Nausea and Vomiting 11/11/18 Yes Physical Exam Physical Exam Constitutional: Well developed, well nourished, no acute distress, non-toxic appearance. [] HENT: Normocephalic, atraumatic, bilateral external ears normal, oropharynx dry, no oral exudates, nose normal. [] Eyes: PERRLA, EOMI, conjunctiva normal, no discharge. [] Neck: Normal range of motion, no tenderness, supple, no stridor. [] Cardiovascular: Regular rate and rhythm[] Lungs & Thorax: Bilateral breath sounds clear to auscultation [] Abdomen: Bowel sounds normal, soft, with mild epigastric tenderness. [] Skin: Warm, dry, no erythema, no rash. [] Extremities: No tenderness, no cyanosis, no clubbing, ROM intact. [] Neurologic: Alert and oriented X 3, no focal deficits noted. [] Current Patient Data Vital Signs Vital Signs Date Time Temp Pulse Resp B/P (MAP) Pulse Ox O2 Delivery O2 Flow Rate FiO2 04/04/19 11:34 99.0 142 18 98 Room Air 04/04/19 11:31 127/90 (102) Lab Results Laboratory Tests Test 04/04/19 11:34 04/04/19 11:51 Glucose (Fingerstick) 472 mg/dL (70-99) H White Blood Count 4.0 x10^3/uL (4.0-11.0) Red Blood Count 4.61 x10^6/uL (3.50-5.40) Hemoglobin 14.9 g/dL (12.0-15.5) Hematocrit 44.1 % (36.0-47.0) Mean Corpuscular Volume 96 fL (79-100) Mean Corpuscular Hemoglobin 32 pg (25-35) Mean Corpuscular Hemoglobin Concent 34 g/dL (31-37) Red Cell Distribution Width 12.9 % (11.5-14.5) Platelet Count 266 x10^3/uL (140-400) Neutrophils (%) (Auto) 59 % (31-73) Lymphocytes (%) (Auto) 31 % (24-48) Monocytes (%) (Auto) 8 % (0-9) Eosinophils (%) (Auto) 1 % (0-3) Basophils (%) (Auto) 1 % (0-3) Neutrophils # (Auto) 2.4 x10^3uL (1.8-7.7) Lymphocytes # (Auto) 1.2 x10^3/uL (1.0-4.8) Monocytes # (Auto) 0.3 x10^3/uL (0.0-1.1) Eosinophils # (Auto) 0.0 x10^3/uL (0.0-0.7) Basophils # (Auto) 0.0 x10^3/uL (0.0-0.2) EKG EKG [] Radiology/Procedures Radiology/Procedures [] Course & Med Decision Making Course & Med Decision Making Pertinent Labs and Imaging studies reviewed. (See chart for details) [] Dragon Disclaimer Dragon Disclaimer This electronic medical record was generated, in whole or in part, using a voice recognition dictation system. Departure Departure: Impression: Primary Impression: Acute gastroenteritis Additional Impressions: Methamphetamine abuse Type 1 diabetes mellitus Disposition: HOME, SELF-CARE Condition: STABLE Referrals: KASEY COSTA (PCP) Patient Instructions: Hyperglycemia, Viral Gastroenteritis Scripts Diphenoxylate Hcl/Atropine (LOMOTIL TABLET) 1 Each Tablet 1 TAB PO TID PRN for DIARRHEA, #15 TAB Prov: COMPA PADGETT Jr. DO 04/04/19 Ondansetron (ONDANSETRON ODT) 4 Mg Tab.rapdis 1 TAB PO PRN Q6-8HRS PRN for NAUSEA, #12 TAB Prov: COMPA PADGETT Jr. DO 04/04/19 Problem Qualifiers Additional Impressions: Type 1 diabetes mellitus Diabetes mellitus complication status: without complication Qualified Codes: E10.9 - Type 1 diabetes mellitus without complications COMPA PADGETT Jr. DO Apr 04, 2019 12:23
[2019-04-04 12:24] LABS: ALBUMIN/GLOBULIN RATIO 0.9 (1.0-1.7); TOTAL BILIRUBIN 1.1 mg/dL (0.2-1.0); TOTAL PROTEIN 8.3 g/dL (6.4-8.2)
[2019-04-04] MEDS ORDERED: INSULIN REGULAR 100 UNIT/ML 3ML VIAL. IV ONE (12:45)
[2019-04-04 13:07] LABS: BARBITURATES NEG (NEG); BENZODIAZEPINES NEG (NEG); CANNABINOIDS NEG (NEG); COCAINE NEG (NEG); METHADONE NEG (NEG); OPIATES NEG (NEG); PHENCYCLIDINE NEG (NEG)
[2019-04-04 13:08] LABS: AMPHETAMINE/METHAMPHETAMINE POS (NEG)
[2019-04-04 13:21] LABS: BILIRUBIN,URINE NEG (NEG); CLARITY,URINE CLEAR; COLOR,URINE YELLOW; GLUCOSE,URINE >=1000 mg/dL (NEG)
[2019-04-04 13:22] LABS: AMORPHOUS SEDIMENT,UR PRESENT /HPF; BACTERIA,URINE FEW /HPF (0-FEW); HYALINE CASTS, URINE FEW /HPF; NITRITE,URINE NEG (NEG); SQUAMOUS EPITHELIAL CELL,UR FEW /LPF; UROBILINOGEN,URINE 0.2 mg/dL (0.2 mg/dL)
[2019-04-04 13:38] VITALS: BP 111/89
[2019-04-04] MEDS ORDERED: DIPHENOXYLATE/ATROPINE TABLET. PO ONE (13:45)
[2019-04-04] MEDS ORDERED: DIPH1TAB PO (14:03)
[2019-04-04] MEDS ORDERED: ONDA4TAB12 PO (14:03)
== END 2019-04-04 14:38 | disposition home or self-care (01) ==
LOC: ER 11:22
DX: K52.9 Noninfective gastroenteritis and colitis, unspecified (principal); E10.65 Type 1 diabetes mellitus with hyperglycemia; F15.10 Other stimulant abuse, uncomplicated; J45.909 Unspecified asthma, uncomplicated; I10 Essential (primary) hypertension; F17.210 Nicotine dependence, cigarettes, uncomplicated; R10.13 Epigastric pain; Z90.49 Acquired absence of other specified parts of digestive tract; Z98.51 Tubal ligation status; Z91.041 Radiographic dye allergy status; Z88.5 Allergy status to narcotic agent
CPT/HCPCS: 36415; 80053; 80307; 81001; 82010; 82947; 85025; 96361; 96374; 96375; 99285; J1815; J2405; 99284-25; J7030

== ENCOUNTER 2020-01-09 14:26 | Inpatient (IN) | payer SELFPAY ==
[~2020-01-09] VITALS: Ht 162.6 cm; Wt 45.9 kg
[~2020-01-09 14:26] MED LIST changes: +DIPH1TAB PO; +ONDA4TAB12 PO
[2020-01-09] MEDS ORDERED: 0.9 % SODIUM CHLORIDE 10 ML DISP.SYRIN. IV PRN (15:15)
[2020-01-09] MEDS ORDERED: IV NORMAL SALINE 1,000ML 1,000 ML IV ONE ×3 (15:30→17:45)
[2020-01-09 15:31] LABS: BGAS PH 7.49 (7.35-7.45)
--- NOTE | 2020-01-09 15:38 | EKG ---
[facility] ED [facility] [address] [place] [address] Test Date: 2020-01-09 Test Time: 15:14:24 Pat Name: MIKAYLA ALEJANDRA Department: Room: Gender: F Phlebotomist Prn: [place] : 1980 Requested By: PALOMA LEVIN Order Number: [id number] Reading MD: Measurements Intervals [place] Rate: 142 P: NC: QRS: 75 QRSD: 66 T: 158 QT: 324 QTc: 498 Interpretive Statements SUPRAVENTRICULAR TACHYCARDIA LVH WITH REPOLARIZATION ABNORMALITY ABNORMAL ECG RI6.02 No previous ECG available for comparison
[2020-01-09 15:39] LABS: BASO % 1 % (0-3); EOS % 1 % (0-3); HEMATOCRIT 37.6 % (36.0-47.0); HEMOGLOBIN 12.2 g/dL (12.0-15.5); LYMPH # 0.3 x10^3/uL (1.0-4.8); LYMPH % 9 % (24-48); MEAN CORPUSCULAR HEMOGLOBIN 33 pg (25-35); MEAN CORPUSCULAR HGB CONC 33 g/dL (31-37); MEAN CORPUSCULAR VOLUME 100 fL (79-100); MONO # 0.2 x10^3/uL (0.0-1.1); MONO % 5 % (0-9); NEUT # 3.1 x10^3uL (1.8-7.7); NEUT % 85 % (31-73); PLATELET COUNT 212 x10^3/uL (140-400); RED BLOOD COUNT 3.76 x10^6/uL (3.50-5.40); RED CELL DISTRIBUTION WIDTH 17.2 % (11.5-14.5); WHITE BLOOD COUNT 3.7 x10^3/uL (4.0-11.0)
[2020-01-09 15:50] LABS: CALCIUM 8.6 mg/dL (8.5-10.1); CREATININE 0.6 mg/dL (0.6-1.0); GFR 110.2; POTASSIUM 3.6 mmol/L (3.5-5.1)
[2020-01-09 15:55] LABS: PREG TEST PT QUAL NEGATIVE (NEG)
[2020-01-09 15:56] LABS: ALBUMIN 2.7 g/dL (3.4-5.0); ALBUMIN/GLOBULIN RATIO 0.7 (1.0-1.7); TOTAL BILIRUBIN 0.8 mg/dL (0.2-1.0); TOTAL PROTEIN 6.4 g/dL (6.4-8.2)
--- NOTE | 2020-01-09 15:56 | PHYS DOC ---
Past History Past Medical History: Asthma, Diabetes, Hypertension, Other Additional Past Medical Histor: meth abuse Past Surgical History: Cholecystectomy, Tubal ligation, Other Smoking: Cigarettes Alcohol Use: None Drug Use: Methamphetamine General Adult EDM: Chief Complaint: MULTIPLE COMPLAINTS HPI: HPI: Patient is a 39-year-old female who presented to ER with cough fever and chill, general weakness. Patient has history of diabetes, history of methamphetamine abuse. Patient denies any abdominal pain, no headache. Patient says she felt so sick today that she had not used any methamphetamine. Patient denies being exposed to anybody who tested positive for COVID-19. Review of Systems: Review of Systems: Constitutional: POSITIVE FOR fever AND chills Eyes: Denies change in visual acuity HENT: Denies nasal congestion or sore throat Respiratory: Positive for cough or shortness of breath Cardiovascular: Denies chest pain or edema GI: Denies abdominal pain, positive for nausea, vomiting, no bloody stools or diarrhea : Denies dysuria Musculoskeletal: Denies back pain or joint pain Integument: Denies rash Neurologic: Denies headache, focal weakness or sensory changes Endocrine: Denies polyuria or polydipsia Lymphatic: Denies swollen glands Psychiatric: Denies depression or anxiety Heart Score: Risk Factors: Risk Factors: DM, Current or recent (<one month) smoker, HTN, HLP, family history of CAD, obesity. Risk Scores: Score 0 - 3: 2.5% MACE over next 6 weeks - Discharge Home Score 4 - 6: 20.3% MACE over next 6 weeks - Admit for Clinical Observation Score 7 - 10: 72.7% MACE over next 6 weeks - Early Invasive Strategies Current Medications: Current Meds: Current Medications Medications (Trade) Dose Ordered Sig/Taryn Start Time Stop Time Status Last Admin Dose Admin Sodium Chloride 1,000 ml @ 1,000 mls/hr 1X ONCE 01/09/20 15:30 01/09/20 16:29 01/09/20 15:30 1,000 MLS/HR Sodium Chloride (Normal Saline Flush) 10 ml QSHIFT PRN 01/09/20 15:15 Allergies: Allergies: Allergies Coded Allergies Type Severity Reaction Last Updated Verified I S O L A T I O N *CONTACT* Allergy Unknown 11/11/18 Yes morphine Adverse Reaction Intermediate Nausea and Vomiting 11/11/18 Yes Physical Exam: PE: Constitutional: Well developed, cachectic, moderate acute distress, toxic appearance. [] HENT: Normocephalic, atraumatic, bilateral external ears normal, oropharynx moist, dried mucous membrane, nose normal. [] Eyes: PERRLA, EOMI, conjunctiva normal, no discharge. [] Neck: Normal range of motion, no tenderness, supple, no stridor. [] Cardiovascular: sinus tachycardia, regular rhythm, no murmur [] Lungs & Thorax: crackles on right lung , tachypnic. Abdomen: Bowel sounds normal, soft, no tenderness, no masses, no pulsatile fortino s. [] Skin: Warm, dry, no erythema, no rash. [] Back: No tenderness, no CVA tenderness. [] Extremities: No tenderness, no cyanosis, no clubbing, ROM intact, no edema. [] Neurologic: Alert and oriented X 3, normal motor function, normal sensory function, no focal deficits noted. [] Psychologic: Affect normal, judgement normal, mood normal. [] Current Patient Data: Labs: Laboratory Tests Test 01/09/20 15:04 01/09/20 15:13 01/09/20 15:25 White Blood Count 3.7 x10^3/uL (4.0-11.0) L Red Blood Count 3.76 x10^6/uL (3.50-5.40) Hemoglobin 12.2 g/dL (12.0-15.5) Hematocrit 37.6 % (36.0-47.0) Mean Corpuscular Volume 100 fL (79-100) Mean Corpuscular Hemoglobin 33 pg (25-35) Mean Corpuscular Hemoglobin Concent 33 g/dL (31-37) Red Cell Distribution Width 17.2 % (11.5-14.5) H Platelet Count 212 x10^3/uL (140-400) Neutrophils (%) (Auto) 85 % (31-73) H Lymphocytes (%) (Auto) 9 % (24-48) L Monocytes (%) (Auto) 5 % (0-9) Eosinophils (%) (Auto) 1 % (0-3) Basophils (%) (Auto) 1 % (0-3) Neutrophils # (Auto) 3.1 x10^3uL (1.8-7.7) Lymphocytes # (Auto) 0.3 x10^3/uL (1.0-4.8) L Monocytes # (Auto) 0.2 x10^3/uL (0.0-1.1) Eosinophils # (Auto) 0.0 x10^3/uL (0.0-0.7) Basophils # (Auto) 0.0 x10^3/uL (0.0-0.2) Sodium Level 133 mmol/L (136-145) L Potassium Level 3.6 mmol/L (3.5-5.1) Chloride Level 96 mmol/L (98-107) L Carbon Dioxide Level 29 mmol/L (21-32) Anion Gap 8 (6-14) Blood Urea Nitrogen 11 mg/dL (7-20) Creatinine 0.6 mg/dL (0.6-1.0) Estimated GFR (Cockcroft-Gault) 110.2 BUN/Creatinine Ratio 18 (6-20) Glucose Level 369 mg/dL (70-99) H Calcium Level 8.6 mg/dL (8.5-10.1) Total Bilirubin Pending Aspartate Amino Transferase (AST) Pending Alanine Aminotransferase (ALT) Pending Alkaline Phosphatase Pending Total Protein Pending Albumin Pending Albumin/Globulin Ratio Pending Lipase Pending Blood pH 7.49 (7.35-7.45) H Blood Gas PCO2 40 mmHg (35-45) Blood Gas PO2 75 mmHg (80-100) L Blood Gas HCO3 30 mmol/L (22-26) H Arterial Bld O2 Saturation (Calc) 96 % (92-99) FiO2 100 % Vital Signs: Vital Signs Date Time Temp Pulse Resp B/P (MAP) Pulse Ox O2 Delivery O2 Flow Rate FiO2 01/09/20 14:54 99.4 111/89 (96) EKG: EKG: EKG was done at 1514, heart rate 142 bpm, sinus tachycardia, no ST segment elevation. Radiology/Procedures: Radiology/Procedures: [][address] [address] IMAGING REPORT Signed PATIENT: MIKAYLA ALEJANDRA MACCOUNT: [id number] : 1980 LOCATION: ER AGE: 39 SEX: F EXAM STATUS: REG ER ORD. PHYSICIAN: PALOMA LEVIN DO REASON: cough, soa, central line placement - rn will call, PROCEDURE: PORTABLE CHEST 1V PORTABLE CHEST 1V Clinical indications: Reason: cough, shortness of air, central line placement COMPARISON: September 23, 2018. Findings: A consolidative infiltrate is seen within the right lower lung zone. Right heart border is partially obscured and therefore, this may represent a right middle lobe lung infiltrate. No pleural effusion or pneumothorax is seen. The heart size, pulmonary vasculature, mediastinum and both colby are unremarkable. Impression: Right middle lobe consolidative infiltrate. Recommend follow-up chest x-ray in 4-6 weeks after completion of antibiotic therapy. Electronically signed by: Chandni Hinkle MD (01/09/2020 4:14 PM) [id number] DICTATED AND SIGNED BY: CHANDNI HINKLE MD DATE: 01/09/20 1614 CC: PALOMA LEVIN DO; KASEY COSTA ~ Course & Med Decision Making: Course & Med Decision Making Pertinent Labs and Imaging studies reviewed. (See chart for details) Patient is a 39-year-old female who presented to ER today for evaluation of cough fever and chill, body ache. Patient has history of methamphetamine abuse. Patient was found to be severely dehydrated, right middle lobe infiltration on chest x-ray, hyperglycemic, severe sepsis. Her heart rate was fast. Patient was given IV fluid and IV antibiotic in ER. Patient will be admitted to the intensive care unit here at this hospital, suspected COVID-19 infection as well. Discussed with Dr. Roman, hospitalist, please admit the patient. Jun Disclaimer: Jun Disclaimer: This electronic medical record was generated, in whole or in part, using a voice recognition dictation system. Departure Departure: Impression: Primary Impression: Pneumonia Additional Impressions: Dehydration Severe sepsis Suspected COVID-19 virus infection Substance abuse Hyperglycemia Disposition: ADMITTED INPATIENT Admitting Physician: Maco Roman Condition: GUARDED Referrals: KASEY COSTA (PCP) PALOMA LEVIN DO Jan 09, 2020 15:56
[2020-01-09 16:05] LABS: AMPHETAMINE/METHAMPHETAMINE POS (NEG); BARBITURATES NEG (NEG); BENZODIAZEPINES NEG (NEG); CANNABINOIDS NEG (NEG); COCAINE NEG (NEG); METHADONE NEG (NEG); OPIATES NEG (NEG); PHENCYCLIDINE NEG (NEG)
--- NOTE | 2020-01-09 16:16 | RAD ---
PORTABLE CHEST 1V Clinical indications: Reason: cough, shortness of air, central line placement COMPARISON: September 23, 2018. Findings: A consolidative infiltrate is seen within the right lower lung zone. Right heart border is partially obscured and therefore, this may represent a right middle lobe lung infiltrate. No pleural effusion or pneumothorax is seen. The heart size, pulmonary vasculature, mediastinum and both colby are unremarkable. Impression: Right middle lobe consolidative infiltrate. Recommend follow-up chest x-ray in 4-6 weeks after completion of antibiotic therapy. Electronically signed by: Mauri Hinkle MD (01/09/2020 4:14 PM) [id number]
[2020-01-09] MEDS ORDERED: PIPERACILLIN/TAZOBACTAM 3.375 GM in IV NORMAL SALINE 50ML 50 ML IV ONE (16:30)
[2020-01-09 16:33] LABS: BACTERIA,URINE 0 /HPF (0-FEW); BILIRUBIN,URINE NEG (NEG); CLARITY,URINE HAZY; COLOR,URINE YELLOW; GLUCOSE,URINE >=1000 mg/dL (NEG); NITRITE,URINE NEG (NEG); SQUAMOUS EPITHELIAL CELL,UR OCC /LPF; UROBILINOGEN,URINE 0.2 mg/dL (0.2 mg/dL); WBC,URINE 0 /HPF (0-4)
[2020-01-09] MEDS ORDERED: IV NORMAL SALINE 50ML 50 ML ONE (16:42)
[2020-01-09] MEDS ORDERED: PIPERACILLIN/TAZOBACTAM 3.375 GM VIAL IV ONE (16:43)
[2020-01-09] MEDS ORDERED: IBUPROFEN 600 MG TABLET. PO ONE (18:00)
[2020-01-09] MEDS ORDERED: IV NORMAL SALINE 1,000ML 1,000 ML IV SCH (18:12)
[2020-01-09] MEDS ORDERED: PIP/TAZO PER PHARMACY MC PRN (18:15)
[2020-01-09] MEDS ORDERED: VANCOMYCIN 1 GM in IV NORMAL SALINE 250ML 250 ML IV ONE (18:15)
[2020-01-09] MEDS ORDERED: VANCOMYCIN PER PHARMACY MC PRN (18:15)
[2020-01-09] MEDS ORDERED: ONDANSETRON PF 4 MG/2 ML VIAL. IVP PRN (18:15)
[2020-01-09] MEDS ORDERED: IV NORMAL SALINE 250ML 250 ML ONE (19:11)
[2020-01-09] MEDS ORDERED: VANCOMYCIN 1 GM VIAL. ONE (19:11)
[2020-01-09] MEDS ORDERED: ASPIRIN RECTAL 300 MG SUPP. PR ONE (20:15)
--- NOTE | 2020-01-09 21:25 | NUR ---
Pharmacy Vancomycin Dosing Note S:Consulted to monitor and dose vancomycin started 01/09/20. O:MIKAYLA ALEJANDRA is a 39 year old F with CAP, . Height: 5 feet, 4 inches Weight: 50.0 kg [place] Body Weight: 54.70 Adjusted Body Weight: 52.82 Dosing Weight: Actual Other Antibiotics: ZOSYN 3.375GM IV Q6HRS LABS: Last BUN: 11 Last Creatinine: 0.6 Creatinine Clearance: 97.4 Last WBC: 3.7 Vancomycin Dosing: Loading Dose: 1000 mg x1 Dosing Weight: Actual Target Trough: 15-20 A: Based on: Actual weight, renal function, and indication P: 1. Begin Vancomycin 750 mg IV q12h 2. Follow up Trough level on 01/11/20 at 0530 3. Pharmacy will continue to monitor, follow and adjust therapy as needed. ROBERT ACEVEDO, 01/09/20 2079
[2020-01-09 21:28] VITALS: BP 102/65
--- NOTE | 2020-01-09 21:38 | NUR ---
The patient, MIKAYLA ALEJANDRA, 39 y/o, F admitted by JARETT HERRERA MD, was given written information regarding hospital policies, unit procedures and contact persons. Valuables were checked and logged. Call light in place. Pt does not answer questions for admission, and pt keeps waking up and nodding off. Bed alarm on pt. Will continue to monitor.
[2020-01-09 22:00] VITALS: BP 107/68
--- NOTE | 2020-01-09 22:00 | NUR ---
Notified MD of elevated heart rate, and fever even after ASA rectal suppository. MD stated, "I do not want you to treat her fever." MD orders given to switch IV antibiotics, start on IV steroids, and lovenox for VTE. Will continue to monitor.
--- NOTE | 2020-01-09 22:15 | NUR ---
Pt came up to ICU on a non-rebreather. Pt's sats 100%. Called RT and RT placed a Venti Mask at 40% on pt. Will continue to monitor.
[2020-01-09] MEDS: methylPREDNISolone SOD SUCC PF 125 MG/2 ML VIAL. IV SCH (22:29)
[2020-01-09] MEDS: AZITHROMYCIN 500 MG in IV NORMAL SALINE 250ML 250 ML IV SCH (22:29)
[2020-01-09] MEDS: ENOXAPARIN 40 MG/0.4 ML SYRINGE. SQ SCH (22:29)
[2020-01-09] MEDS: IV NORMAL SALINE 1,000ML 1,000 ML IV SCH (22:30)
[2020-01-09 23:00] VITALS: BP 92/54
[2020-01-10] VITALS (22 sets, daily range): BP systolic 87–117; BP diastolic 57–82
[2020-01-10] MEDS: PIPERACILLIN/TAZOBACTAM 3.375 GM in IV NORMAL SALINE 50ML 50 ML IV SCH ×4 (00:13→17:36)
[2020-01-10] MEDS: IV NORMAL SALINE 1,000ML 1,000 ML IV SCH (01:29)
[2020-01-10] MEDS: methylPREDNISolone SOD SUCC PF 125 MG/2 ML VIAL. IV SCH ×3 (05:34→20:40)
[2020-01-10] MEDS ORDERED: VANCOMYCIN 750 MG in IV NORMAL SALINE 250ML 250 ML IV SCH (06:00)
[2020-01-10] MEDS ORDERED: DEXTROSE 50% 25 GM / 50ML DISP.SYRIN. IV PRN (09:45)
[2020-01-10] MEDS: INSULIN LISPRO 300 UNITS/3 ML VIAL. SQ SCH ×2 (12:53→17:36)
[2020-01-10] MEDS: NICOTINE 21MG PATCH. TD SCH (12:57)
[2020-01-10] MEDS: ENOXAPARIN 40 MG/0.4 ML SYRINGE. SQ SCH (20:40)
[2020-01-10] MEDS: AZITHROMYCIN 500 MG in IV NORMAL SALINE 250ML 250 ML IV SCH (20:40)
[2020-01-11] VITALS (11 sets, daily range): BP systolic 90–122; BP diastolic 62–86
--- NOTE | 2020-01-11 00:01 | NUR ---
Pt's IV went bad while this nurse was flushing to start pt's ATB. IV attempts were multiple. IV infusions were late due to lack of IV access. Pt requested pain medicine related to cramping in her abdomen. During the last IV insertion patient fell asleep and sat's went down to 79% and rebounded quickly. Held fentanyl at this time.
[2020-01-11] MEDS: IV NORMAL SALINE 1,000ML 1,000 ML IV SCH ×2 (00:40→11:44)
[2020-01-11] MEDS: PIPERACILLIN/TAZOBACTAM 3.375 GM in IV NORMAL SALINE 50ML 50 ML IV SCH ×5 (00:46→23:46)
--- NOTE | 2020-01-11 01:35 | HP ---
ADMIT DATE: 01/09/2020 ADMISSION HISTORY AND PHYSICAL ATTENDING PHYSICIAN: Dr. Herrera. CHIEF COMPLAINT: Weakness. HISTORY OF PRESENT ILLNESS: The patient is a 39-year-old female admitted through the ED with a several-day history of chills, generalized weakness, diabetes, methamphetamine abuse, polysubstance abuse. She was clinically dehydrated. COVID-19 swab is pending, it is unclear from her history whether she had exposure. She has very little insight into her condition. She had a chest x-ray, which showed a lobar consolidation in the right lower lobe consistent with community-acquired pneumonia. She was given Zosyn and vancomycin and admitted for pneumonia. PAST MEDICAL HISTORY: Significant for cholecystectomy, polysubstance abuse, tubal ligation, major depression. She is a smoker. She has methamphetamine use. She drinks alcohol socially. MEDICATIONS: Her medicines are unclear. We are in the process of trying to figure out what she was taking and how compliant she was. She does have a history of diabetes. ALLERGIES: SHE HAS ALLERGIES TO MORPHINE, EXACT REACTION IS UNCLEAR. SOCIAL HISTORY: She is a smoker. FAMILY HISTORY: Father committed suicide at age 31. Mom is still alive at age 60. She has 2 kids. She could not give me further details. REVIEW OF SYSTEMS: Significant for generalized weakness, cough, fevers, chills, congestion, poor appetite. She is obtunded from her pain meds and a very poor historian. All other systems reviewed and determined to be negative. PHYSICAL EXAMINATION: GENERAL: When I saw her, this is a 39-year-old female who appears much older than her stated age. INITIAL VITAL SIGNS: Showed a blood pressure 112/67 mmHg, pulse is 110 and regular. She was afebrile. Oxygen saturation 98% on 40% facemask, this will be tapered. HEENT: Head is without trauma. Pupils are reactive. Oropharynx is clear. She has poor dental repair and is edentulous. NECK: Supple, no bruits. No stridor. LUNGS: Coarse rhonchi at the right base. Minimal wheezing noted in the upper airways. CARDIOVASCULAR: Showed distant heart tones, tachycardic rhythm. No obvious gallops. Peripheral pulses are palpable and full. ABDOMEN: Soft, scaphoid, nontender. There are no masses palpated. EXTREMITIES: Showed no cyanosis or edema. NEUROLOGIC: Focally intact. Speech is fluent. SKIN: Otherwise warm and dry. IMAGING STUDIES: The initial chest x-ray showed COPD changes, hyperexpansion. There is a right middle lobe consolidative infiltrate and right lower lobe infiltrate, consistent with lobar pneumonia. LABORATORY DATA: The hemoglobin is 12.2 g/dL with a white count of 3700. Nonfasting blood sugar was 292. Potassium is 3.6 mEq. ASSESSMENT: 1. A 39-year-old female with a right middle lobe and right lower lobe pneumonia. 2. Polysubstance abuse. 3. Cardiac cachexia. 4. Chronic obstructive pulmonary disease. 5. Type 2 diabetes with poorly controlled sugars. 6. Underlying depression with anxiety. PLAN: 1. Admit to the intensive care. 2. IV hydration. 3. Intravenous Zosyn and Zithromax has been ordered. 4. Diabetic diet as tolerated. 5. Serial chemistries. 6. Sliding scale insulin for glucose control. JARETT HERRERA MD DR: OZZIE/philip JOB#: [id number] / [id number]
--- NOTE | 2020-01-11 04:35 | NUR ---
Pt screaming and yelling in her room. Pt called for pain medications, then reached over for her drink with ease and no screaming or yelling. When this nurse gave pt her pain medication she giggled and talked normally. Pulse ox placed back on patient. Will continue to monitor.
[2020-01-11] MEDS: methylPREDNISolone SOD SUCC PF 125 MG/2 ML VIAL. IV SCH ×3 (05:58→20:56)
[2020-01-11] MEDS: INSULIN LISPRO 300 UNITS/3 ML VIAL. SQ SCH ×3 (08:00→17:05)
[2020-01-11] MEDS ORDERED: INSULIN NPH/REG HUM 70/30 300 UNITS/3 ML VIAL. SQ SCH (09:15)
[2020-01-11] MEDS: NICOTINE 21MG PATCH. TD SCH (09:21)
[2020-01-11] MEDS ORDERED: INSULIN REGULAR 100 UNIT/ML 3ML VIAL. SQ ONE ×2 (09:30→12:00)
--- NOTE | 2020-01-11 09:55 | PN ---
DATE: 01/11/2020 ATTENDING PHYSICIAN: Dr. Herrera. SUBJECTIVE: The patient is alert. She is feeling better. She is not agitated. She has a minimally productive cough. OBJECTIVE FINDINGS: VITAL SIGNS: Her blood pressure today is 105/73 mmHg, pulse 106 and regular. She was afebrile, oxygen saturation 95% on room air. HEENT: Head is without trauma. Pupils are reactive. Oropharynx clear. She has no teeth. She is edentulous. She also has angular stomatitis, also known as perleche. NECK: Supple, no bruits. LUNGS: Coarse rhonchi at the bases. CARDIOVASCULAR: Showed a tachycardic rhythm. No gallops. Peripheral pulses are palpable and full. ABDOMEN: Soft, scaphoid, nontender, no masses. EXTREMITIES: Without edema. NEUROLOGIC: Focally intact. Affect is normal. SKIN: Otherwise, warm and dry. LABORATORY DATA: Nonfasting blood sugar 462. ASSESSMENT: 1. A 39-year-old female with a right middle lobe and right lower lobe pneumonia, it is lobar, most likely streptococcal in nature. 2. Chronic obstructive pulmonary disease. 3. Polysubstance abuse. 4. Noncompliance of meds. 5. Poorly controlled diabetes mellitus. 6. Protein-calorie malnutrition. 7. Angular stomatitis consistent with poor nutrition and lifestyle. PLAN: 1. Continue antibiotics one more day. 2. Her COVID-19 swab is negative. 3. Followup x-ray in the morning. 4. Insulin for glucose control. 5. Tentative discharge plans for tomorrow. JARETT HERRERA MD DR: OZZIE/philip JOB#: [id number] / [id number]
--- NOTE | 2020-01-11 12:54 | NUR ---
Pt upset with staff that she can not have two sodas at 1100. Staff stated her sugar is elevated and she can have ice water, and have diet soda with her lunch that would be here at 1200. Pt stating she wants to leave AMA she can't believe a hospital wouldn't give her two sodas, it was explained to her that she has had a total of 8 diet soda cans since day shift started, and her sugar is elevated and we are trying to get it under control. Pt stated she will stay.
--- NOTE | 2020-01-11 15:54 | NUR ---
Patient transferred from ICU bed 6 to 1 south room 115. Patient assisted into bed and given call light. VS taken, please see chart. No concerns noted at this time, will continue to monitor.
[2020-01-11] MEDS: LOPERAMIDE 2 MG CAPSULE PO PRN (16:23)
[2020-01-11] MEDS: LIDOCAINE 2% TOPICAL JELLY 30GM TUBE. TP PRN (16:23)
[2020-01-11] MEDS: AZITHROMYCIN 500 MG in IV NORMAL SALINE 250ML 250 ML IV SCH (20:56)
[2020-01-11] MEDS: ENOXAPARIN 40 MG/0.4 ML SYRINGE. SQ SCH (20:57)
[2020-01-12] MEDS: LIDOCAINE 2% TOPICAL JELLY 30GM TUBE. TP PRN ×2 (01:14→08:41)
[2020-01-12] MEDS: IV NORMAL SALINE 1,000ML 1,000 ML IV SCH (04:14)
[2020-01-12] MEDS: PIPERACILLIN/TAZOBACTAM 3.375 GM in IV NORMAL SALINE 50ML 50 ML IV SCH (04:14)
[2020-01-12 05:42] VITALS: BP 134/89
[2020-01-12] MEDS: methylPREDNISolone SOD SUCC PF 125 MG/2 ML VIAL. IV SCH (06:21)
[2020-01-12] MEDS: INSULIN LISPRO 300 UNITS/3 ML VIAL. SQ SCH ×2 (08:00→12:00)
[2020-01-12] MEDS: NICOTINE 21MG PATCH. TD SCH (08:40)
[2020-01-12] MEDS: LOPERAMIDE 2 MG CAPSULE PO PRN (08:41)
[2020-01-12] MEDS ORDERED: INSULIN REGULAR 100 UNIT/ML 3ML VIAL. SQ ONE (08:45)
--- NOTE | 2020-01-12 09:31 | RAD ---
CHEST AP ONLY History: Reason: Right middle lobe pneumonia / Spl. Instructions: / History: Comparison: January 09, 2020 Findings: Decreased right lower lung consolidations. Small bilateral pleural effusions. No pneumothorax. Postop changes right upper lung. Unchanged heart size. Impression: 1. Decreased right lower lung consolidation. 2. Small bilateral pleural effusions. Electronically signed by: Efren Lantigua DO (01/12/2020 9:28 AM) [id number]
--- NOTE | 2020-01-12 11:30 | DS ---
DATE OF DISCHARGE: 01/12/2020 ATTENDING PHYSICIAN: Dr. Herrera. FINAL DISCHARGE DIAGNOSES: 1. Community-acquired pneumonia, right middle lobe and right lower lobe, resolving. 2. Polysubstance abuse. 3. Cachexia. 4. Chronic obstructive pulmonary disease. 5. Type 2 diabetes with poorly controlled sugars. 6. Underlying depression with anxiety. 7. History of methamphetamine and other substance abuse. HISTORY AND PHYSICAL: The patient is a 39-year-old female admitted with weakness, cough, congestion and chest x-ray evidence of a right middle lobe and right lower lobe pneumonia. It is a lobar consolidation. PHYSICAL EXAMINATION: Please see the dictated note. PERTINENT LABORATORY AND X-RAY STUDIES: Follow up x-rays done on the fourth hospital day showed resolution in clearing of her right middle lobe and right lower lobe infiltrate. Her admission hemoglobin was 12.2 g with a white count of 3700. Chemistry panel, blood sugar was still in the mid 200s and this was treated accordingly and will follow up as an outpatient. Admission sodium was 133 mEq, creatinine 0.6 mg/dL. COURSE IN THE HOSPITAL: The patient was admitted and started on intravenous Zosyn as well as Zithromax for antibiotics she received 4 full days intravenously. Sugars were controlled with insulin Lantus and regular turned out she was not compliant in taking her insulin as recommended. Her diet was advanced and she felt better. She was moved out of the ICU. COVID-19 swab was negative. On the fourth hospital day, her vital signs were stable. She was afebrile. She was breathing better. She had no dyspnea. She had adequate oxygen saturation on room air and her chest x-ray on the morning of discharge showed improvement in clearing. At this time, we had a nurse case management to get her some antibiotics, so I recommended 5 more days of Augmentin 875 one b.i.d. In addition, she should continue her insulin her regular and especially her Lantus at bedtime as prescribed. She will also continue her Lomotil p.r.n., Neurontin 300 mg b.i.d., regular insulin, Lantus at bedtime, lisinopril 10 mg daily, Reglan 5 mg daily and ondansetron p.r.n. Strong encouragement to avoid further drug and tobacco use whether or not she will remain to be seen. She will follow up with her PCP in 1 weeks' time as per recommendation. The patient was then discharged from our hospital in stable condition with explicit instructions and followup care. TOTAL DISCHARGE TIME SPENT: 41 minutes. JARETT HERRERA MD DR: OZZIE/philip JOB#: [id number] / [id number]
[2020-01-12 11:38] VITALS: BP 106/72
--- NOTE | 2020-01-12 11:56 | NUR ---
Dr. Roman notified of pt blood glucose, does not want lab glucose, wants 20 units regular insulin given subq and to discharge pt.
[2020-01-12] MEDS ORDERED: INSULIN REGULAR 100 UNIT/ML 3ML VIAL. IM ONE (12:00)
--- NOTE | 2020-01-12 13:25 | NUR ---
may was dc'd, tashia was dc'd. rx and good rx provided by [facility]. pt has ride coming.
== END 2020-01-12 14:10 | disposition home or self-care (01) | DRG 871 ==
LOC: ER 14:26 → ICU 18:04 → 1 SOUTH 01-11 15:53
PROVIDERS: ADMIT Hospitalist; ATTEND Hospitalist
DX: A41.9 Sepsis, unspecified organism (principal); J12.89 Other viral pneumonia; E46 Unspecified protein-calorie malnutrition; R65.20 Severe sepsis without septic shock; E86.0 Dehydration; Z20.828 Contact with and (suspected) exposure to other viral communicable diseases; E11.65 Type 2 diabetes mellitus with hyperglycemia; F15.10 Other stimulant abuse, uncomplicated; J44.9 Chronic obstructive pulmonary disease, unspecified; F41.8 Other specified anxiety disorders; Z98.51 Tubal ligation status; Z90.49 Acquired absence of other specified parts of digestive tract; Z88.8 Allergy status to other drugs, medicaments and biological substances; K13.0 Diseases of lips; Z91.14 Patient's other noncompliance with medication regimen
CPT/HCPCS: 36415; 36600; 51701; 71045; 80053; 80307; 81001; 82010; 82803; 82947; 83605; 83690; 84484; 84703; 85025; 85610; 85730; 87040; 87493; 93005; 96361; 96365; 96367; J0456; J1650; J1815; J2060; J2543; J2930; J3010; J3370; J7050; 99285-25; J7030; U0003-CS

== ENCOUNTER 2020-02-04 18:58 | Emergency (ER) | payer SELFPAY ==
[~2020-02-04] VITALS: Ht 160 cm; Wt 40.9 kg
--- NOTE | 2020-02-04 19:08 | PHYS DOC ---
Past History Past Medical History: Asthma, Diabetes, Hypertension, Other Additional Past Medical Histor: meth abuse Past Surgical History: Cholecystectomy, Tubal ligation, Other Smoking: Cigarettes Alcohol Use: None Drug Use: Methamphetamine General Adult HPI: HPI: History obtained from patient and EMS. Patient is a 39-year-old female with history of tobacco abuse, polysubstance abuse, COPD, insulin-dependent diabetes who presents with chief complaint of confusion and lethargy. Per EMS there called the patient's boyfriend's house due to somnolence. They state she has a history of low blood sugar episodes and were concerned this was the case. Initial blood sugar upon EMS arrival was approximately 29. She did get oral glucagon and her blood glucose did improve to 49. EMS states that her mentation has improved gradually throughout transport. Patient states that she has mild abdominal discomfort. She states she was recently hospitalized at [facility]. She is unsure why she was hospitalized. She denies any drug or alcohol abuse. 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 She is alert and oriented x2. No further extremity obtained secondary to the patient's somnolence. GCS: ([id number] Review of Systems: Review of Systems: Constitutional: Positive for weakness and chills Eyes: Denies change in visual acuity HENT: Denies nasal congestion or sore throat Respiratory: Denies cough or shortness of breath Cardiovascular: Denies chest pain or edema GI: Denies abdominal pain, nausea, vomiting, bloody stools or diarrhea : Denies dysuria Musculoskeletal: Denies back pain or joint pain Integument: Denies rash Neurologic: Denies headache, focal weakness or sensory changes Endocrine: Denies polyuria or polydipsia Lymphatic: Denies swollen glands Psychiatric: Denies depression or anxiety Allergies: Allergies: Allergies Coded Allergies Type Severity Reaction Last Updated Verified I S O L A T I O N *CONTACT* Allergy Unknown 11/11/18 Yes morphine Adverse Reaction Intermediate Nausea and Vomiting 11/11/18 Yes Physical Exam: PE: Constitutional: Well developed, well nourished, no acute distress, non-toxic appearance. [] HENT: Normocephalic, atraumatic, bilateral external ears normal, oropharynx moist, no oral exudates, nose normal. [] Eyes: PERRLA, EOMI, conjunctiva normal, no discharge. [] Neck: Normal range of motion, no tenderness, supple, no stridor. [] Cardiovascular: Tachycardic, rhythm, no murmur [] Lungs & Thorax: Bilateral breath sounds clear to auscultation [] Abdomen: soft, no tenderness, no masses, no pulsatile masses. [] Skin: Warm, dry, no erythema, no rash. [] Back: No tenderness, no CVA tenderness. [] Extremities: No tenderness, no cyanosis, no clubbing, ROM intact, no edema. [] Neurologic: Alert with intact cognitive function. No aphasia, dysarthria, or neglect. GCS 13. Pupils 3 mm briskly reactive b/l. No APD present. Cranial nerves 2-12 grossly intact; no facial asymmetry present, tongue midline, shoulder shrugging strength intact. Strength 5/5 and symmetric throughout. Light touch sensation intact throughout. Cerebellar testing appropriate without evidence of dysdiadochokinesia. DTR's 2+ in all 4 extremities. Negative pronator drift bilaterally. Gait deferred Psychologic: Affect normal, judgement normal, mood normal. [] Current Patient Data: Labs: Laboratory Tests Test 02/04/20 19:07 02/04/20 19:45 Glucose (Fingerstick) 77 mg/dL White Blood Count 3.9 x10^3/uL Red Blood Count 4.19 x10^6/uL Hemoglobin 13.9 g/dL Hematocrit 42.8 % Mean Corpuscular Volume 102 fL Mean Corpuscular Hemoglobin 33 pg Mean Corpuscular Hemoglobin Concent 32 g/dL Red Cell Distribution Width 16.9 % Platelet Count 234 x10^3/uL Neutrophils (%) (Auto) 49 % Lymphocytes (%) (Auto) 39 % Monocytes (%) (Auto) 8 % Eosinophils (%) (Auto) 3 % Basophils (%) (Auto) 1 % Neutrophils # (Auto) 1.9 x10^3uL Lymphocytes # (Auto) 1.5 x10^3/uL Monocytes # (Auto) 0.3 x10^3/uL Eosinophils # (Auto) 0.1 x10^3/uL Basophils # (Auto) 0.0 x10^3/uL Sodium Level 140 mmol/L Potassium Level 3.4 mmol/L Chloride Level 101 mmol/L Carbon Dioxide Level 26 mmol/L Anion Gap 13 Blood Urea Nitrogen 15 mg/dL Creatinine 0.5 mg/dL Estimated GFR (Cockcroft-Gault) 136.0 BUN/Creatinine Ratio 30 Glucose Level 86 mg/dL Calcium Level 9.5 mg/dL Magnesium Level 1.7 mg/dL Total Bilirubin 0.4 mg/dL Aspartate Amino Transf (AST/SGOT) 185 U/L Alanine Aminotransferase (ALT/SGPT) 206 U/L Alkaline Phosphatase 493 U/L Troponin I Quantitative < 0.017 ng/mL Total Protein 8.4 g/dL Albumin 4.0 g/dL Albumin/Globulin Ratio 0.9 Lipase 53 U/L Salicylates Level < 2.8 mg/dL Salicylate Last Dose Date None Salicylate Last Dose Time None Acetaminophen Level < 2.0 mcg/mL Acetaminophen Last Dose Date None Acetaminophen Last Dose Time None Ethyl Alcohol Level < 10 mg/dL Current Medications Medications (Trade) Dose Ordered Sig/Taryn Route PRN Reason Start Time Stop Time Status Last Admin Dose Admin Sodium Chloride 1,000 ml @ 100 mls/hr 1X ONCE IV 02/04/20 19:15 02/05/20 05:14 02/04/20 20:01 Vital Signs: Vital Signs Date Time Temp Pulse Resp B/P (MAP) Pulse Ox O2 Delivery O2 Flow Rate FiO2 02/04/20 21:18 100 158/96 (116) 100 02/04/20 20:13 97.0 103 18 151/105 (120) 100 Room Air EKG: EKG: [] EKG consistent with normal sinus rhythm. Ventricular rate of 97 bpm. [place] normal. Intervals normal. No acute ischemic changes noted. QTc 492. Radiology/Procedures: Radiology/Procedures: [] Heart Score: Risk Factors: Risk Factors: DM, Current or recent (<one month) smoker, HTN, HLP, family history of CAD, obesity. Risk Scores: Score 0 - 3: 2.5% MACE over next 6 weeks - Discharge Home Score 4 - 6: 20.3% MACE over next 6 weeks - Admit for Clinical Observation Score 7 - 10: 72.7% MACE over next 6 weeks - Early Invasive Strategies Course & Med Decision Making: Course & Med Decision Making Pertinent Labs and Imaging studies reviewed. (See chart for details) [] Patient is a 39-year-old female who presents via EMS for somnolence and concern for hypoglycemia. Initial glucose on EMS arrival was approximately 29. She did receive 1 mg of oral glucagon that did improve her blood sugar to 49. Upon arrival to emergency department she is somewhat somnolent but is arousable. Patient continued to show improvement of her mentation. Basic labs were obtained and were unremarkable. Her blood glucose on our assessment was 77. She does tell us that she took short acting insulin prior to arrival did not eat as much as she should have. Labs today are consistent with her baseline. Her low blood sugar is likely secondary to inappropriate insulin usage. She has been on [facility] emergency department. She now is a GCS of 15 after close observation and is alert and oriented x3. She has tolerated p.o. and her blood sugar continues to maintain at a normal level. Chest x-ray was pending however patient is requesting discharge home. Given her chart review did reflect recent community-acquired pneumonia I did express to her that she could have underlying infection driving her hypoglycemia. She would like to defer chest x- ray imaging. She does appear to have capacity at this time. She has appear alert and oriented x3 and clinically sober. This time she will be electing leave AGAINST MEDICAL ADVICE. Return precautions discussed and understood. Jun Disclaimer: Jun Disclaimer: This electronic medical record was generated, in whole or in part, using a voice recognition dictation system. Departure Departure: Impression: Primary Impression: Hypoglycemia Additional Impression: Transaminitis Disposition: 07 AMA/ELOPED/LWBS Condition: STABLE Referrals: KASEY COSTA (PCP) Patient Instructions: Hypoglycemia (Low Blood Sugar), Hypoglycemia, [id number] Additional Instructions: Please return to the emergency department at any time should he want to be reevaluated. Please follow-up with your primary care physician in the next 2 to 3 days. PATTIE DUBON DO Feb 04, 2020 19:08
[2020-02-04] MEDS ORDERED: IV NORMAL SALINE 1,000ML 1,000 ML IV ONE (19:15)
[2020-02-04 20:19] LABS: BASO % 1 % (0-3); EOS # 0.1 x10^3/uL (0.0-0.7); EOS % 3 % (0-3); HEMATOCRIT 42.8 % (36.0-47.0); HEMOGLOBIN 13.9 g/dL (12.0-15.5); LYMPH # 1.5 x10^3/uL (1.0-4.8); LYMPH % 39 % (24-48); MEAN CORPUSCULAR HEMOGLOBIN 33 pg (25-35); MEAN CORPUSCULAR HGB CONC 32 g/dL (31-37); MEAN CORPUSCULAR VOLUME 102 fL (79-100); MONO # 0.3 x10^3/uL (0.0-1.1); MONO % 8 % (0-9); NEUT # 1.9 x10^3uL (1.8-7.7); NEUT % 49 % (31-73); PLATELET COUNT 234 x10^3/uL (140-400); RED BLOOD COUNT 4.19 x10^6/uL (3.50-5.40); RED CELL DISTRIBUTION WIDTH 16.9 % (11.5-14.5); WHITE BLOOD COUNT 3.9 x10^3/uL (4.0-11.0)
[2020-02-04 20:24] LABS: ACETAMIN < 2.0 mcg/mL (10-30); CALCIUM 9.5 mg/dL (8.5-10.1); CREATININE 0.5 mg/dL (0.6-1.0); POTASSIUM 3.4 mmol/L (3.5-5.1); SALIC < 2.8 mg/dL (2.8-20.0)
[2020-02-04 20:25] LABS: ETHANOL < 10 mg/dL (0-10)
[2020-02-04 20:27] LABS: ALBUMIN/GLOBULIN RATIO 0.9 (1.0-1.7); MAGNESIUM 1.7 mg/dL (1.8-2.4); TOTAL BILIRUBIN 0.4 mg/dL (0.2-1.0); TOTAL PROTEIN 8.4 g/dL (6.4-8.2)
--- NOTE | 2020-02-04 21:11 | EKG ---
[address] [address] Test Date: 2020-02-04 Test Time: 20:40:02 Pat Name: MIKAYLA ALEJANDRA Department: Room: Gender: F Comprehensive Ophthalmologist: NIKITA : 1980 Requested By: PATTIE DUBON Order Number: [id number] Reading MD: Measurements Intervals [place] Rate: 97 P: 69 AL: 130 QRS: 70 QRSD: 72 T: 85 QT: 384 QTc: 492 Interpretive Statements SINUS RHYTHM LEFT ATRIAL ABNORMALITY PROLONGED QT ABNORMAL ECG RI6.02 No previous ECG available for comparison
[2020-02-04 21:18] VITALS: BP 158/96
[2020-02-04 21:49] LABS: BILIRUBIN,URINE NEG (NEG); CLARITY,URINE CLEAR; COLOR,URINE STRAW; GLUCOSE,URINE 100 mg/dL (NEG)
[2020-02-04 21:50] LABS: NITRITE,URINE NEG (NEG); UROBILINOGEN,URINE 0.2 mg/dL (0.2 mg/dL)
[2020-02-04 21:56] LABS: BARBITURATES NEG (NEG); BENZODIAZEPINES NEG (NEG); CANNABINOIDS NEG (NEG); COCAINE NEG (NEG); METHADONE NEG (NEG); OPIATES NEG (NEG); PHENCYCLIDINE NEG (NEG)
[2020-02-04 21:57] LABS: BACTERIA,URINE 0 /HPF (0-FEW); WBC,URINE 0 /HPF (0-4)
[2020-02-04 21:59] LABS: AMPHETAMINE/METHAMPHETAMINE POS (NEG)
== END 2020-02-04 21:40 | disposition left against medical advice (07) ==
LOC: ER 18:58
DX: E11.649 Type 2 diabetes mellitus with hypoglycemia without coma (principal); R74.01 Elevation of levels of liver transaminase levels; E11.9 Type 2 diabetes mellitus without complications; I10 Essential (primary) hypertension; F17.210 Nicotine dependence, cigarettes, uncomplicated; F15.10 Other stimulant abuse, uncomplicated; J44.9 Chronic obstructive pulmonary disease, unspecified; Z88.8 Allergy status to other drugs, medicaments and biological substances; Z88.5 Allergy status to narcotic agent
CPT/HCPCS: 36415; 80053; 80307; 80329; 81001; 81025; 82947; 83690; 83735; 84484; 85025; 93005; 96360; 96361; 99284; G0480; J7030

== ENCOUNTER 2020-03-05 02:48 | Emergency (ER) | payer SELFPAY ==
[~2020-03-05] VITALS: Ht 160 cm; Wt 40.9 kg
--- NOTE | 2020-03-05 03:03 | PHYS DOC ---
Past History Past Medical History: Diabetes, GERD, Hypertension, Other Additional Past Medical Histor: neuropathy Past Surgical History: Cholecystectomy, Tubal ligation, Other Additional Past Surgical Histo: lung lobectomy Smoking: Cigarettes Alcohol Use: Occasionally Drug Use: Methamphetamine General Adult HPI: HPI: History limited by patient willingness to cooperate and being a poor historian. Patient is a 39-year-old female coming in by EMS for hypoglycemia, per the reading glucose is 23, was given IM glucagon and glucose raised to 150. Patient has well-known to the emergency department for poorly controlled diabetes and drug abuse. Patient says she was discharged from [facility] 2 to 3 days ago for "septic shock" unsure of the source of the infection. Patient states she was not in DKA at that time. She takes Humalog and a long-acting insulin, does not remember her last dose but states would last 5 hours. Patient does not have last time she ate but also states was not past 24 hours. She denies drug or alcohol use but per EMS report she has been doing methamphetamines. Review of Systems: Review of Systems: Constitutional: Denies fever or chills Eyes: Denies change in visual acuity HENT: Denies nasal congestion or sore throat Respiratory: Denies cough or shortness of breath Cardiovascular: Denies chest pain or edema GI: Denies abdominal pain, nausea, vomiting, bloody stools or diarrhea : Denies dysuria Musculoskeletal: Denies back pain or joint pain Integument: Denies rash Neurologic: Denies headache, focal weakness or sensory changes Endocrine: Denies polyuria or polydipsia Lymphatic: Denies swollen glands Psychiatric: Denies depression or anxiety Allergies: Allergies: Allergies Coded Allergies Type Severity Reaction Last Updated Verified I S O L A T I O N *CONTACT* Allergy Unknown 11/11/18 Yes morphine Adverse Reaction Intermediate Nausea and Vomiting 11/11/18 Yes Physical Exam: PE: Constitutional: Ill-appearing, complaining of being cold HENT: Normocephalic, atraumatic, bilateral external ears normal, Eyes: PERRLA, EOMI, conjunctiva normal, no discharge. [] Pupils 3 mm Neck: Normal range of motion, no tenderness, supple, no stridor. [] Cardiovascular:Heart rate regular rhythm, no murmur [] Lungs & Thorax: Bilateral breath sounds clear to auscultation [] Abdomen: Bowel sounds normal, soft, no tenderness, no masses, no pulsatile masses. [] Skin: Warm, dry, no erythema, no rash. [] Back: No tenderness, no CVA tenderness. [] Extremities: No tenderness, no cyanosis, no clubbing, ROM intact, no edema. [] Neurologic: Alert and oriented X 3, normal motor function, normal sensory function, no focal deficits noted. [] Psychologic: Affect normal, judgement normal, mood normal. [] EKG: EKG: [] Sinus rhythm, heart rate 91, normal axis, no ST elevation or depression. Prolonged QT interval Radiology/Procedures: Radiology/Procedures: EXAMINATION: CT ABD PELV W/ IV CONTRST ONLY (CT ABDOMEN/PELVIS WITH IV CONTRAST) CLINICAL HISTORY: Elevated liver function tests TECHNIQUE: CT of the abdomen and pelvis was performed using standard technique, scanning from just above the dome of the diaphragm to the symphysis pubis following administration of intravenous contrast. CT Dose Reduction Employed: One or more of the following individualized dose reduction techniques were utilized for this examination: 1. Automated exposure control 2. Adjustment of the mA and/or kV according to patient size 3. Use of iterative reconstruction technique. COMPARISON: 07/28/2019 11/11/2018 FINDINGS: Minimal left basilar subsegmental atelectasis. Slightly increased hepatomegaly with mild diffuse hypoattenuation of the hepatic parenchyma, compatible with steatosis. Cholecystectomy with intrahepatic and extrahepatic biliary ductal prominence, similar to prior study. Pancreas, spleen, adrenal glands, and kidneys unremarkable. Mildly filled urinary bladder with diffusely prominent bladder patino, nonspecific and may be related to underdistention. Prominent parametrial vasculature, similar to prior study. No bowel dilation or definite wall thickening. Normal air-filled appendix. No abdominal aortic or iliac artery aneurysm. No significant lymphadenopathy. No evidence of acute osseous abnormality. IMPRESSION: No evidence of acute abdominopelvic abnormality. Slightly increased hepatomegaly with steatosis. Additional nonacute findings as described.[] Heart Score: Risk Factors: Risk Factors: DM, Current or recent (<one month) smoker, HTN, HLP, family history of CAD, obesity. Risk Scores: Score 0 - 3: 2.5% MACE over next 6 weeks - Discharge Home Score 4 - 6: 20.3% MACE over next 6 weeks - Admit for Clinical Observation Score 7 - 10: 72.7% MACE over next 6 weeks - Early Invasive Strategies Course & Med Decision Making: Course & Med Decision Making Patient with history of noncompliance and drug abuse. After glucagon and medical clearance was able to eat tolerating p.o. Patient alert and says she feels better. CT shows hepatomegaly, has slight increase in baseline high LFTs. No signs of infection, does not have a gallbladder. Advised to follow-up with her primary for outpatient examination of liver enzymes [] Dragon Disclaimer: Jun Disclaimer: This electronic medical record was generated, in whole or in part, using a voice recognition dictation system. Departure Departure: Impression: Primary Impression: Hypoglycemia Additional Impression: Nonadherence to medication Disposition: 01 DC HOME SELF CARE/HOMELESS Condition: IMPROVED Referrals: KASEY COSTA (PCP) Patient Instructions: Hypoglycemia, [id number] HINA ALLAN MD Mar 05, 2020 03:03
--- NOTE | 2020-03-05 03:10 | EKG ---
[facility] ED [facility] [address] [place] [id number] Test Date: 2020-03-05 Test Time: 03:01:42 Pat Name: MIKAYLA ALEJANDRA Department: Room: Gender: F Private Duty Nurse: : 1980 Requested By: HINA ALLAN Order Number: [id number] Reading MD: Virgil Drummond Measurements Intervals [place] Rate: 91 P: 76 DE: 140 QRS: 69 QRSD: 84 T: 57 QT: 416 QTc: 514 Interpretive Statements SINUS RHYTHM LEFT ATRIAL ABNORMALITY PROLONGED QT Electronically Signed On 03-09-2020 10:53:48 INSTALLATION AND REPAIR TECHNICIAN by Virgil Drummond
[2020-03-05] MEDS ORDERED: NICOTINE 21MG PATCH. TD ONE (03:45)
[2020-03-05 04:00] LABS: BASO % 0 % (0-3); EOS % 1 % (0-3); HEMATOCRIT 42.3 % (36.0-47.0); HEMOGLOBIN 13.8 g/dL (12.0-15.5); LYMPH % 24 % (24-48); MEAN CORPUSCULAR HEMOGLOBIN 33 pg (25-35); MEAN CORPUSCULAR HGB CONC 33 g/dL (31-37); MEAN CORPUSCULAR VOLUME 100 fL (79-100); MONO # 0.2 x10^3/uL (0.0-1.1); MONO % 6 % (0-9); NEUT # 2.8 x10^3uL (1.8-7.7); NEUT % 69 % (31-73); PLATELET COUNT 188 x10^3/uL (140-400); RED BLOOD COUNT 4.23 x10^6/uL (3.50-5.40); RED CELL DISTRIBUTION WIDTH 15.4 % (11.5-14.5)
[2020-03-05 04:06] LABS: CREATININE 0.6 mg/dL (0.6-1.0); GFR 110.2; POTASSIUM 3.3 mmol/L (3.5-5.1)
[2020-03-05 04:23] LABS: ALBUMIN 3.4 g/dL (3.4-5.0); ALBUMIN/GLOBULIN RATIO 0.8 (1.0-1.7); MAGNESIUM 1.8 mg/dL (1.8-2.4); PHOSPHORUS 3.9 mg/dL (2.6-4.7); TOTAL BILIRUBIN 0.6 mg/dL (0.2-1.0); TOTAL PROTEIN 7.5 g/dL (6.4-8.2)
[2020-03-05] MEDS ORDERED: CONTRAST GIVEN. MC PRN (04:45)
[2020-03-05] MEDS ORDERED: IOHEXOL 300 MG/ML 75 ML VIAL. IV ONE (04:45)
[2020-03-05] MEDS ORDERED: IV NORMAL SALINE 1,000ML 1,000 ML IV ONE (05:45)
[2020-03-05 05:56] LABS: BARBITURATES NEG (NEG); BENZODIAZEPINES NEG (NEG); CANNABINOIDS NEG (NEG); COCAINE NEG (NEG); METHADONE NEG (NEG); OPIATES NEG (NEG); PHENCYCLIDINE NEG (NEG)
--- NOTE | 2020-03-05 05:57 | RAD ---
EXAMINATION: CT ABD PELV W/ IV CONTRST ONLY (CT ABDOMEN/PELVIS WITH IV CONTRAST) CLINICAL HISTORY: Elevated liver function tests TECHNIQUE: CT of the abdomen and pelvis was performed using standard technique, scanning from just above the dome of the diaphragm to the symphysis pubis following administration of intravenous contrast. CT Dose Reduction Employed: One or more of the following individualized dose reduction techniques were utilized for this examination: 1. Automated exposure control 2. Adjustment of the mA and/or kV according to patient size 3. Use of iterative reconstruction technique. COMPARISON: 07/28/2019 11/11/2018 FINDINGS: Minimal left basilar subsegmental atelectasis. Slightly increased hepatomegaly with mild diffuse hypoattenuation of the hepatic parenchyma, compatible with steatosis. Cholecystectomy with intrahepatic and extrahepatic biliary ductal prominence, similar to prior study. Pancreas, spleen, adrenal glands, and kidneys unremarkable. Mildly filled urinary bladder with diffusely prominent bladder patino, nonspecific and may be related to underdistention. Prominent parametrial vasculature, similar to prior study. No bowel dilation or definite wall thickening. Normal air-filled appendix. No abdominal aortic or iliac artery aneurysm. No significant lymphadenopathy. No evidence of acute osseous abnormality. IMPRESSION: No evidence of acute abdominopelvic abnormality. Slightly increased hepatomegaly with steatosis. Additional nonacute findings as described. Electronically signed by: Romero Peng DO (03/05/2020 5:54 AM) [facility]
[2020-03-05 05:59] LABS: AMPHETAMINE/METHAMPHETAMINE POS (NEG)
[2020-03-05 06:10] LABS: BACTERIA,URINE 0 /HPF (0-FEW); BILIRUBIN,URINE NEG (NEG); CLARITY,URINE CLEAR; COLOR,URINE YELLOW; GLUCOSE,URINE 250 mg/dL (NEG); NITRITE,URINE NEG (NEG); RBC,URINE OCC /HPF (0-2); UROBILINOGEN,URINE 0.2 mg/dL (0.2 mg/dL)
[2020-03-05 06:11] LABS: AMORPHOUS SEDIMENT,UR PRESENT /HPF; TYROSINE CRYSTAL,URINE PRESENT /HPF
[2020-03-05 07:23] VITALS: BP 126/92
== END 2020-03-05 07:42 | disposition home or self-care (01) ==
LOC: ER 02:48
DX: E11.649 Type 2 diabetes mellitus with hypoglycemia without coma (principal); K21.9 Gastro-esophageal reflux disease without esophagitis; I10 Essential (primary) hypertension; F19.90 Other psychoactive substance use, unspecified, uncomplicated; F17.210 Nicotine dependence, cigarettes, uncomplicated; Z90.49 Acquired absence of other specified parts of digestive tract; Z98.51 Tubal ligation status; Z98.890 Other specified postprocedural states; Z91.14 Patient's other noncompliance with medication regimen
CPT/HCPCS: 36415; 74177; 80053; 80307; 81001; 82947; 83605; 83735; 84100; 85025; 87040; 93005; 96360; 99285; G0480; J7030; Q9967

== ENCOUNTER 2020-03-18 07:22 | Emergency (ER) | payer SELFPAY ==
[~2020-03-18] VITALS: Ht 160 cm; Wt 40.9 kg
[2020-03-18] MEDS ORDERED: IV NORMAL SALINE 1,000ML 1,000 ML IV ONE ×2 (08:15→09:45)
[2020-03-18] MEDS ORDERED: ONDANSETRON PF 4 MG/2 ML VIAL. IVP ONE (08:45)
[2020-03-18 08:56] LABS: BASO % 0 % (0-3); EOS % 0 % (0-3); HEMATOCRIT 35.3 % (36.0-47.0); HEMOGLOBIN 11.1 g/dL (12.0-15.5); LYMPH # 0.9 x10^3/uL (1.0-4.8); LYMPH % 18 % (24-48); MEAN CORPUSCULAR HEMOGLOBIN 32 pg (25-35); MEAN CORPUSCULAR HGB CONC 31 g/dL (31-37); MEAN CORPUSCULAR VOLUME 103 fL (79-100); MONO # 0.2 x10^3/uL (0.0-1.1); MONO % 5 % (0-9); NEUT % 77 % (31-73); PLATELET COUNT 291 x10^3/uL (140-400); RED BLOOD COUNT 3.44 x10^6/uL (3.50-5.40); RED CELL DISTRIBUTION WIDTH 14.7 % (11.5-14.5); WHITE BLOOD COUNT 5.2 x10^3/uL (4.0-11.0)
--- NOTE | 2020-03-18 09:05 | PHYS DOC ---
Past History Past Medical History: Diabetes, GERD, Hypertension, Hepatitis, Other Additional Past Medical Histor: neuropathy, meth abuse Past Surgical History: Cholecystectomy, Tubal ligation, Other Additional Past Surgical Histo: lung lobectomy Smoking: Cigarettes Alcohol Use: Occasionally Drug Use: Methamphetamine Adult General Chief Complaint Chief Complaint: BLOOD SUGAR PROBLEM [facility] HPI Patient is a 39-year-old female who presents to the emergency room complaining of nausea, vomiting, diarrhea that started over the last couple of days. Patient is a known diabetic but she does not take her insulin. She was discharged from [facility] 2 days ago for similar issues. Patient is a poor historian. She is unsure the last time she had insulin. She continues to use methamphetamines. She does use IV methamphetamine. Review of Systems Review of Systems Complete ROS is negative unless otherwise documented in HPI Current Medications Current Medications Current Medications Medications (Trade) Dose Ordered Sig/Taryn Start Time Stop Time Status Last Admin Dose Admin Ondansetron HCl (Zofran) 4 mg 1X ONCE 03/18/20 08:45 03/18/20 08:46 DC 03/18/20 08:46 4 MG Sodium Chloride 1,000 ml @ 1,000 mls/hr 1X ONCE 03/18/20 08:15 03/18/20 09:14 03/18/20 08:46 1,000 MLS/HR Allergies Allergies Allergies Coded Allergies Type Severity Reaction Last Updated Verified I S O L A T I O N *CONTACT* Allergy Unknown 11/11/18 Yes morphine Adverse Reaction Intermediate Nausea and Vomiting 11/11/18 Yes Physical Exam Physical Exam General: Awake, sleepy, cachectic HEENT: Atraumatic, EOMI, PERRL, dry oral mucosa Neck: Supple, trachea midline Respiratory: CTA bilaterally, normal effort, no wheezing/crackles CV: Tachycardic, no murmur, cap refill <2 GI: Soft, nondistended, nontender, no masses MSK: No obvious deformities Skin: Warm, dry, intact, track muñoz bilateral AC Neuro: A&O x3, speech NL, sensory and motor grossly intact, no focal deficits Psych: Normal affect, normal mood, not suicidal or homicidal Current Patient Data Vital Signs Vital Signs Date Time Temp Pulse Resp B/P (MAP) Pulse Ox O2 Delivery O2 Flow Rate FiO2 03/18/20 07:37 97.0 120 18 126/92 (103) 98 Room Air EKG EKG [] Radiology/Procedures Radiology/Procedures [] Heart Score Risk Factors: Risk Factors: DM, Current or recent (<one month) smoker, HTN, HLP, family history of CAD, obesity. Risk Scores: Risk Factors: DM, Current or recent (<one month) smoker, HTN, HLP, family history of CAD, obesity. Course & Med Decision Making Course & Med Decision Making Pertinent Labs and Imaging studies reviewed. (See chart for details) Patient is 39-year-old female past medical history of diabetes and met hamphetamine abuse who presents to the emergency room complaining of vomiting and diarrhea. Her glucose at this time reads high. This is likely the cause of her symptoms. She has not been having any fevers. She has had multiple episodes of similar symptoms in the past with hyperglycemia. Care was delayed due to patient being unable to get access. Patient was given fluids and labs were ordered. Patient has requested to leave AGAINST MEDICAL ADVICE. I have discussed the benefits of staying for a full work up and the patient would like to leave. I discussed the risks of leaving including but not limited to , permenant end-organ damage, worsening of condition and patient stated understanding. Patient signed out against medical advice. Patient did receive fluids and fluid prior to leaving. Glucose and urine were not able to be rechecked prior to patient signing out. Dragon Disclaimer Dragon Disclaimer This electronic medical record was generated, in whole or in part, using a voice recognition dictation system. Departure Departure: Impression: Primary Impression: Diabetes type 1, uncontrolled Disposition: 07 AMA/ELOPED/LWBS Condition: IMPROVED Referrals: KASEY COSTA (PCP) JOSÉ LUIS LOWRY MD Mar 18, 2020 09:05
[2020-03-18 09:06] LABS: CALCIUM 8.4 mg/dL (8.5-10.1); CREATININE 0.7 mg/dL (0.6-1.0); GFR 92.2; POTASSIUM 4.9 mmol/L (3.5-5.1)
[2020-03-18 09:10] LABS: BACTERIA,URINE 0 /HPF (0-FEW); BILIRUBIN,URINE NEG (NEG); CLARITY,URINE CLEAR; COLOR,URINE YELLOW; GLUCOSE,URINE 500 mg/dL (NEG); NITRITE,URINE NEG (NEG); RBC,URINE 0 /HPF (0-2); SQUAMOUS EPITHELIAL CELL,UR OCC /LPF; UROBILINOGEN,URINE 0.2 mg/dL (0.2 mg/dL); WBC,URINE 0 /HPF (0-4)
[2020-03-18] MEDS ORDERED: INSULIN REGULAR 100 UNIT/ML 3ML VIAL. IV ONE (09:15)
[2020-03-18 10:00] VITALS: BP 139/92
== END 2020-03-18 10:28 | disposition left against medical advice (07) ==
LOC: ER 07:22
DX: E10.65 Type 1 diabetes mellitus with hyperglycemia (principal); R11.2 Nausea with vomiting, unspecified; R19.7 Diarrhea, unspecified; K21.9 Gastro-esophageal reflux disease without esophagitis; I10 Essential (primary) hypertension; E11.40 Type 2 diabetes mellitus with diabetic neuropathy, unspecified; F17.210 Nicotine dependence, cigarettes, uncomplicated; F15.10 Other stimulant abuse, uncomplicated; Z88.8 Allergy status to other drugs, medicaments and biological substances; Z88.5 Allergy status to narcotic agent
CPT/HCPCS: 36415; 36556; 80048; 81001; 85025; 96361; 96374; 96375; 99284; J1815; J2405; J7030

== ENCOUNTER 2020-03-31 00:28 | Inpatient (IN) | payer SELFPAY ==
[~2020-03-31] VITALS: Ht 160 cm; Wt 32.9 kg
[2020-03-31 01:52] LABS: BASO # 0.1 x10^3/uL (0.0-0.2); BASO % 1 % (0-3); EOS % 0 % (0-3); HEMATOCRIT 40.8 % (36.0-47.0); HEMOGLOBIN 13.4 g/dL (12.0-15.5); LYMPH # 1.3 x10^3/uL (1.0-4.8); LYMPH % 19 % (24-48); MEAN CORPUSCULAR HEMOGLOBIN 32 pg (25-35); MEAN CORPUSCULAR HGB CONC 33 g/dL (31-37); MEAN CORPUSCULAR VOLUME 97 fL (79-100); MONO # 0.5 x10^3/uL (0.0-1.1); MONO % 8 % (0-9); NEUT # 4.9 x10^3uL (1.8-7.7); NEUT % 72 % (31-73); PLATELET COUNT 237 x10^3/uL (140-400); RED CELL DISTRIBUTION WIDTH 14.6 % (11.5-14.5); WHITE BLOOD COUNT 6.7 x10^3/uL (4.0-11.0)
[2020-03-31 01:58] LABS: CALCIUM 9.2 mg/dL (8.5-10.1); CREATININE 1.3 mg/dL (0.6-1.0); GFR 45.1; POTASSIUM 4.2 mmol/L (3.5-5.1)
[2020-03-31 02:13] LABS: ALBUMIN/GLOBULIN RATIO 0.8 (1.0-1.7); TOTAL BILIRUBIN 0.5 mg/dL (0.2-1.0); TOTAL PROTEIN 6.8 g/dL (6.4-8.2)
[2020-03-31] MEDS ORDERED: IV NORMAL SALINE 1,000ML 1,000 ML IV ONE (02:30)
[2020-03-31 02:47] LABS: BARBITURATES NEG (NEG); BENZODIAZEPINES NEG (NEG); CANNABINOIDS NEG (NEG); COCAINE NEG (NEG); METHADONE NEG (NEG); OPIATES NEG (NEG); PHENCYCLIDINE NEG (NEG)
[2020-03-31 02:54] LABS: AMPHETAMINE/METHAMPHETAMINE POS (NEG)
[2020-03-31 03:00] LABS: CLARITY,URINE CLEAR; COLOR,URINE YELLOW; GLUCOSE,URINE >=1000 mg/dL (NEG)
[2020-03-31] MEDS ORDERED: IV NORMAL SALINE 1,000ML 1,000 ML IV SCH (03:00)
[2020-03-31 03:02] LABS: BILIRUBIN,URINE NEG (NEG)
[2020-03-31 03:03] LABS: BACTERIA,URINE 0 /HPF (0-FEW); NITRITE,URINE NEG (NEG); RBC,URINE 0 /HPF (0-2); SQUAMOUS EPITHELIAL CELL,UR OCC /LPF; UROBILINOGEN,URINE 0.2 mg/dL (0.2 mg/dL); WBC,URINE OCC /HPF (0-4)
--- NOTE | 2020-03-31 03:17 | RAD ---
CT head without contrast dated 03/31/2020. Comparison made to 09/23/2018. CLINICAL INDICATION: Confusion. TECHNIQUE: Contiguous axial imaging the head was performed from skull base to vertex. No contrast administered. One or more of the following individualized dose reduction techniques were utilized for this examinat ion: 1. Automated exposure control 2. Adjustment of the mA and/or kV according to patient size 3. Use of iterative reconstruction technique FINDINGS: Ventricles and sulci are within normal limits for age. No midline shift or mass effect. Brain parench yma is of normal attenuation. No hemorrhage or extra-axial collection. There is a small hyperdense or calcified focus in the central анна is unchanged from prior study, likely a small vascular malformat ion. No hemorrhage or extra-axial collection. Posterior fossa and brainstem unremarkable. Visualized paranasal sinuses and mastoid air cells are clear. No apparent calvarial abnormality. IMPRESSION: 1. No evidence of acute intracranial hemorrhage or mass. 2. Small focus of hyperdensity in the central анна is similar to prior study, likely developing calci fication or a small developmental venous anomaly. Electronically signed by: Wood Ornelas MD (03/31/2020 3:14 AM) BILL
--- NOTE | 2020-03-31 03:22 | PHYS DOC ---
Past History Past Medical History: Diabetes, GERD, Hypertension, Hepatitis, Other Additional Past Medical Histor: neuropathy, meth abuse Past Surgical History: Cholecystectomy, Tubal ligation, Other Additional Past Surgical Histo: lung lobectomy Smoking: Cigarettes Alcohol Use: Occasionally Drug Use: Methamphetamine Adult General Chief Complaint Chief Complaint: ALTERED MENTAL STATUS HPI HPI Patient is a 39-year-old female who presents to the emergency room after becoming unresponsive. Patient has a history of methamphetamine abuse and diabetes. According to EMS her friend at the apartment watched her get up to go the bathroom and she collapsed on the floor and would not get up. She initially was unresponsive for them but then over time started to wake up more. Patient is very lethargic and unable to answer any kind of questions at this time. Review of Systems Review of Systems Unable to obtain due to lethargy Current Medications Current Medications Current Medications Medications (Trade) Dose Ordered Sig/Taryn Start Time Stop Time Status Last Admin Dose Admin Sodium Chloride 1,000 ml @ 200 mls/hr Q5H 03/31/20 03:00 04/01/20 02:59 Allergies Allergies Allergies Coded Allergies Type Severity Reaction Last Updated Verified I S O L A T I O N *CONTACT* Allergy Unknown 11/11/18 Yes morphine Adverse Reaction Intermediate Nausea and Vomiting 11/11/18 Yes Physical Exam Physical Exam General: Lethargic, arousable to painful stimuli, severely cachectic HEENT: Atraumatic, EOMI, PERRL, airway patent, moist oral mucosa Neck: Supple, trachea midline Respiratory: CTA bilaterally, normal effort, no wheezing/crackles CV: Regular rhythm, tachycardia, no murmur, cap refill <2 GI: Soft, nondistended, nontender, no masses MSK: No obvious deformities Skin: Warm, dry, intact Neuro: Nonverbal, moves all extremities to painful stimuli Psych: Normal affect, normal mood, not suicidal or homicidal Current Patient Data Vital Signs Vital Signs Date Time Temp Pulse Resp B/P (MAP) Pulse Ox O2 Delivery O2 Flow Rate FiO2 03/31/20 00:28 97.2 135 14 104/77 (86) 96 Room Air Lab Results Laboratory Tests Test 03/31/20 00:45 03/31/20 01:35 03/31/20 02:30 Glucose (Fingerstick) 323 mg/dL (70-99) H White Blood Count 6.7 x10^3/uL (4.0-11.0) Red Blood Count 4.20 x10^6/uL (3.50-5.40) Hemoglobin 13.4 g/dL (12.0-15.5) Hematocrit 40.8 % (36.0-47.0) Mean Corpuscular Volume 97 fL (79-100) Mean Corpuscular Hemoglobin 32 pg (25-35) Mean Corpuscular Hemoglobin Concent 33 g/dL (31-37) Red Cell Distribution Width 14.6 % (11.5-14.5) H Platelet Count 237 x10^3/uL (140-400) Neutrophils (%) (Auto) 72 % (31-73) Lymphocytes (%) (Auto) 19 % (24-48) L Monocytes (%) (Auto) 8 % (0-9) Eosinophils (%) (Auto) 0 % (0-3) Basophils (%) (Auto) 1 % (0-3) Neutrophils # (Auto) 4.9 x10^3uL (1.8-7.7) Lymphocytes # (Auto) 1.3 x10^3/uL (1.0-4.8) Monocytes # (Auto) 0.5 x10^3/uL (0.0-1.1) Eosinophils # (Auto) 0.0 x10^3/uL (0.0-0.7) Basophils # (Auto) 0.1 x10^3/uL (0.0-0.2) Sodium Level 135 mmol/L (136-145) L Potassium Level 4.2 mmol/L (3.5-5.1) Chloride Level 99 mmol/L (98-107) Carbon Dioxide Level 21 mmol/L (21-32) Anion Gap 15 (6-14) H Blood Urea Nitrogen 16 mg/dL (7-20) Creatinine 1.3 mg/dL (0.6-1.0) H Estimated GFR (Cockcroft-Gault) 45.1 BUN/Creatinine Ratio 12 (6-20) Glucose Level 165 mg/dL (70-99) H Calcium Level 9.2 mg/dL (8.5-10.1) Total Bilirubin 0.5 mg/dL (0.2-1.0) Aspartate Amino Transferase (AST) 483 U/L (15-37) H Alanine Aminotransferase (ALT) 376 U/L (14-59) H Alkaline Phosphatase 943 U/L (46-116) H Troponin I Quantitative < 0.017 ng/mL (0-0.055) Total Protein 6.8 g/dL (6.4-8.2) Albumin 3.0 g/dL (3.4-5.0) L Albumin/Globulin Ratio 0.8 (1.0-1.7) L Urine Collection Type Unknown Urine Color Yellow Urine Clarity Clear Urine pH 6.0 Urine Specific [place] 1.025 Urine Protein 100 mg/dl (NEG-TRACE) Urine Glucose (UA) >=1000 mg/dL (NEG) Urine Ketones (Stick) >=160 mg/dL (NEG) Urine Blood Neg (NEG) Urine Nitrite Neg (NEG) Urine Bilirubin Neg (NEG) Urine Urobilinogen Dipstick 0.2 mg/dL (0.2 mg/dL) Urine Leukocyte Esterase Neg (NEG) Urine RBC 0 /HPF (0-2) Urine WBC Occ /HPF (0-4) Urine Squamous Epithelial Cells Occ /LPF Urine Bacteria 0 /HPF (0-FEW) Urine Opiates Screen Neg (NEG) Urine Methadone Screen Neg (NEG) Urine Barbiturates Neg (NEG) Urine Phencyclidine Screen Neg (NEG) Urine Amphetamine/Methamphetamine Pos (NEG) Urine Benzodiazepines Screen Neg (NEG) Urine Cocaine Screen Neg (NEG) Urine Cannabinoids Screen Neg (NEG) Urine Ethyl Alcohol Neg (NEG) EKG EKG [] Radiology/Procedures Radiology/Procedures [] Heart Score Risk Factors: Risk Factors: DM, Current or recent (<one month) smoker, HTN, HLP, family history of CAD, obesity. Risk Scores: Risk Factors: DM, Current or recent (<one month) smoker, HTN, HLP, family history of CAD, obesity. Course & Med Decision Making Course & Med Decision Making Pertinent Labs and Imaging studies reviewed. (See chart for details) Patient is a 39-year-old female who presents to the emergency room after developing altered mental status. Patient is cachectic and overall ill- appearing. She has been here in our emergency room for similar symptoms previously. Work-up was ordered for altered mental status including CBC, CMP, chest x-ray, UA, urine drug screen. Patient appears to be severely dehydrated. IV access was difficult to obtain due to dehydration and patient's IV drug abuse. Patient became somewhat more responsive here in the emergency room. She will be admitted for observation. Dragon Disclaimer Dragon Disclaimer This electronic medical record was generated, in whole or in part, using a voice recognition dictation system. Departure Departure: Impression: Primary Impression: Altered mental state Additional Impressions: Methamphetamine abuse Transaminitis Type 1 diabetes mellitus Dehydration Disposition: ADMITTED INPT THIS HOSP Condition: IMPROVED Referrals: KASEY COSTA (PCP) Problem Qualifiers JOSÉ LUIS LOWRY MD Mar 31, 2020 03:22
[2020-03-31 05:00] VITALS: BP 114/80
[2020-03-31] MEDS ORDERED: OXYC5TAB2 PO (05:01)
[2020-03-31] MEDS ORDERED: INSULIN LISPRO 300 UNITS/3 ML VIAL. SQ ONE (08:30)
[2020-03-31] MEDS ORDERED: NON FORMULARY ITEM (Insulin Glargine,Hum.rec.anlog (Lantus Solostar) 10 UNIT) SQ SCH (09:00)
[2020-03-31] MEDS ORDERED: INSULIN GLARGINE SYRINGE. SQ SCH ×2 (09:00)
--- NOTE | 2020-03-31 09:19 | HP ---
ADMIT DATE: 03/31/2020 ATTENDING PHYSICIAN: Dr. Herrera. CHIEF COMPLAINT: The patient collapsed at home. HISTORY OF PRESENT ILLNESS: The patient is a 39-year-old female well known to us from multiple previous admissions. She continues to abuse methamphetamine and does not take care of her diabetes. Sugars are very high. Her friend at the apartment stated that she went to the bathroom, collapsed on the floor and could not get up. She was unresponsive. Her sugars were over 400 when she came here. She also tested positive for methamphetamine. She was given IV fluids and admitted for observation. PAST MEDICAL HISTORY: Significant for several admissions, one admission in 10/2019 showed a blood sugar of 1200. She was hypotensive at that time. She continues polysubstance abuse, COPD, type 2 diabetes with no control, underlying depression, anxiety and significant cachexia. ALLERGIES: She has allergies to MORPHINE, exact reaction is unclear. CURRENT MEDICATIONS: Indicated that she was supposed to take metoprolol along with regular and long-acting insulin. She has been noncompliant on all these medicines. SOCIAL HISTORY: She continues to smoke. PAST SURGICAL HISTORY: Tubal ligation, lung lobectomy, cholecystectomy. Other medical issues include gastroesophageal reflux disease, hypertension, chronic hepatitis. FAMILY HISTORY: Unobtainable. REVIEW OF SYSTEMS: Significant for the substance abuse and cachexia. She was fairly alert by the next day. She understands she needs to quit, but has a hard time dealing with this. She had a very flat affect. All other systems reviewed and turned to be negative. PHYSICAL EXAMINATION: GENERAL: When I saw her, this is a pleasant female appearing much older than her stated age. INITIAL VITAL SIGNS: Showed a blood pressure 114/80, pulse 110 and regular, temperature 97.6 degrees Fahrenheit, oxygen saturation 96% on room air. HEENT: Head is without trauma. Pupils are reactive. Sclerae nonicteric. She is edentulous. NECK: Supple, no bruits. LUNGS: Clear. CARDIOVASCULAR: Showed regular heart tones, tachycardic rhythm. No gallops. ABDOMEN: Soft, scaphoid and cachexia. No rebound tenderness. EXTREMITIES: Without edema. NEUROLOGIC: Focally intact. Affect is flat. SKIN: Warm and dry. PERTINENT LABORATORY STUDIES: Her sugar this morning was still at 350, glucose as noted. Creatinine is 1.3 mg percent, potassium 4.2 mEq, hemoglobin 13.4 g with a white count of 6700. ASSESSMENT: 1. A 39-year-old female with polysubstance abuse. 2. Syncopal episode at home, resolved. 3. Tachycardia, asymptomatic, noncompliant with meds. 4. Type 2 diabetes. 5. Generalized debilitation. 6. Significant cachexia. 7. Underlying depression. PLAN: 1. Observation status. 2. Diet as tolerated. 3. Continue insulin as prescribed. JARETT HERRERA MD DR: OZZIE/philip JOB#: [id number] / [id number]
--- NOTE | 2020-03-31 09:57 | DS ---
DATE OF DISCHARGE: 03/31/2020 ATTENDING PHYSICIAN: Dr. Herrera. FINAL DISCHARGE DIAGNOSES: 1. Near syncopal episode, resolved. 2. Altered mentation, resolved. 3. Polysubstance abuse. 4. Type 2 diabetes with no control. 5. Significant cachexia. 6. Chronic obstructive pulmonary disease. 7. Underlying depression and anxiety. 8. Substance abuse. 9. Hypertension. 10. History of hepatitis. 11. History of diabetic neuropathy. HISTORY AND PHYSICAL: The patient is a 39-year-old female well known to us from multiple admissions with noncompliance and continued substance abuse. She had altered mentation. She was brought into the ED, she tested positive for methamphetamine. She continues to smoke heavily. PHYSICAL EXAMINATION: Please see the dictated note. PERTINENT LABORATORY AND X-RAY STUDIES: Urine drug screen was indeed positive for substance abuse. Hemoglobin maintained at 13.4 grams per deciliter, white count 6700. Electrolytes within normal range. Nonfasting blood sugar was 350. The obligatory CT of the head done showed no evidence of acute intracranial process. COURSE IN THE HOSPITAL: The patient was admitted and monitored. Diet was advanced. She became sober. Sugars were controlled. Accordingly, she was a bit tachycardic. She has not been taking her beta blockers. We gave her a dose of metoprolol. I did write her a script for metoprolol 100 mg p.o. daily. She was better the next day, she was sober, asymptomatic. She wanted to go home for Burna. I felt this is reasonable. Therefore, she is discharged home with a new script for metoprolol 100 mg p.o. daily. Strong encouragement to continue her 3 shots of regular insulin before each meal and a shot of long-acting Lantus at the evening. Strong encouragement to avoid further substance abuse whether or not this will happen ___. In any event, she was discharged from our hospital in stable condition with explicit instructions and followup care. JARETT HERRERA MD DR: OZZIE/philip JOB#: [id number] / [id number]
[2020-03-31] MEDS ORDERED: INSULIN ASPART 8 UNIT SQ SCH (11:30)
[2020-03-31] MEDS ORDERED: INSULIN LISPRO 300 UNITS/3 ML VIAL. SQ SCH (12:00)
== END 2020-03-31 10:22 | disposition home or self-care (01) | DRG 74 ==
LOC: ER 00:28 → ICU 04:06
PROVIDERS: ADMIT Internal Medicine; ATTEND Internal Medicine
DX: E10.40 Type 1 diabetes mellitus with diabetic neuropathy, unspecified (principal); R64 Cachexia; E86.0 Dehydration; K21.9 Gastro-esophageal reflux disease without esophagitis; F15.10 Other stimulant abuse, uncomplicated; F17.200 Nicotine dependence, unspecified, uncomplicated; F32.9 Major depressive disorder, single episode, unspecified; Z91.14 Patient's other noncompliance with medication regimen; F41.9 Anxiety disorder, unspecified; I10 Essential (primary) hypertension; J44.9 Chronic obstructive pulmonary disease, unspecified; K73.9 Chronic hepatitis, unspecified; Z79.4 Long term (current) use of insulin; Z79.899 Other long term (current) drug therapy; Z91.19 Patient's noncompliance with other medical treatment and regimen; Z88.8 Allergy status to other drugs, medicaments and biological substances
CPT/HCPCS: 36415; 70450; 80053; 80307; 81001; 82947; 84484; 85025; 87040; 96360; 96361; 96372; J1815; 99285-25; J7030

== ENCOUNTER 2020-09-05 03:55 | Emergency (ER) | payer OTHER ==
[~2020-09-05] VITALS: Ht 160 cm; Wt 32.9 kg
[~2020-09-05 03:55] MED LIST changes: +LISI10TA16 PO; -LISI10TA2 PO; +OXYC5TAB2 PO
--- NOTE | 2020-09-05 04:07 | PHYS DOC ---
Past History Past Medical History: Diabetes, GERD, Hypertension, Hepatitis, Other Additional Past Medical Histor: neuropathy, meth abuse Past Surgical History: Cholecystectomy, Tubal ligation, Other Additional Past Surgical Histo: lung lobectomy Smoking: Cigarettes Alcohol Use: Occasionally Drug Use: Methamphetamine General Adult HPI: HPI: ".. I am her boyfriend.. but she been staying with a friend... When I came home tonight she was cruz out of it... vomited.. and was all sweaty.. I gave her some pop in case her blood sugar was low... She does do meth...but I think she clean this week...".. " I know earlier in week she had high glucose...".." She did have a stilf episode.. like she was having a seizire...".." So I brought her in to be checked out..." Patient is a 40 year old female who presents with altered mental status, possible seizure activity and hx of extremely high glucose levels at home. Pt. patient has been evaluated previously at [facility] for multiple admissions for diabetes and methamphetamine use. Has had previous admission with glucose levels in excess of 1200 in March 2020. Pt very sedated in appearance. The patient has history of extremely high glucose levels at home this past week. Patient has also history of hypertension, tobacco use, COPD, depression, anxiety, cachectic, GERD, hepatitis,, noncompliance with medical regimens and polysubstance abuse. History is of tubal ligation, lobectomy and cholecystectomy. Patient was given 2 mg of Narcan because of her sedated appearance and combined respiratory and metabolic acidosis. Patient immediately awakened and become very agitated. Pt. yelling " God dam it I am cold.. god damn it put me on a bear hugger..god damn it you mother fuckers.. I am freezing.." Review of Systems: Review of Systems: Review of systems limited because of patient's altered mental status Family History: Family History: Currently unobtainable Current Medications: Current Meds: See nursing for home meds Allergies: Allergies: Allergies Coded Allergies Type Severity Reaction Last Updated Verified I S O L A T I O N *CONTACT* Allergy Unknown 11/11/18 Yes morphine Adverse Reaction Intermediate Nausea and Vomiting 11/11/18 Yes Physical Exam: PE: Constitutional: Moderate distress, cachectic appearance. [] HENT: Normocephalic, atraumatic, bilateral external ears normal, oropharynx dry, no oral exudates, nose normal. [] Eyes: PERRLA, EOMI, conjunctiva normal, no discharge. [] Neck: Normal range of motion, no tenderness, supple, no stridor. Snoring. Cardiovascular: Tachycardia heart rate regular rhythm, mild murmur [] Lungs & Thorax: Bilateral breath sounds to apex with scattered wheezes on auscultation []Rt.chest wall scars. Abdomen: Bowel sounds decreased, soft, no tenderness, no masses, no pulsatile masses. Old surgery scars Skin: Warm, dry, no erythema, no rash. Poor turgor Back: No tenderness, no CVA tenderness. [] Extremities: No tenderness, no cyanosis, no clubbing, ROM intact, no edema. Old IV tract muñoz. Neurologic: Alert only to noxious stimuli, but does cross react,, appears to have decreased peripheral plantar sensory , no focal deficits noted. [] Psychologic: Affect flat judgement impaired, - Pt became very agitated and argumentive after the Narcan given. EKG: EKG: Unable to complete because of pt. agitation. 04:40 My interpretation EKG at 627 hours shows a sinus tachycardia 104 bpm. There is a strain pattern in anterior septal leads. No findings of acute STEMI with contralateral changes. Radiology/Procedures: Radiology/Procedures: [address] [address] IMAGING REPORT Signed PATIENT: MIKAYLA ALEJANDRA MACCOUNT: [id number] : 1980 LOCATION: ER AGE: 40 SEX: F EXAM STATUS: REG ER ORD. PHYSICIAN: JARETH MUJICA MD REASON: dyspnea, wheezing PROCEDURE: PORTABLE CHEST 1V EXAM: AP View of the chest DATE: 09/05/2020 6:14 AM INDICATION: Reason: dyspnea, wheezing / Spl. Instructions: / History: COMPARISON: No Prior FINDINGS: Left subclavian catheter tip projects over the distal SVC. Postsurgical changes right lung. The heart is not enlarged. Mediastinal and hilar contours are normal. No focal parenchymal airspace opacity. No pleural effusion or pneumothorax. IMPRESSION: 1. No radiographic evidence for acute cardiopulmonary process. Electronically signed by: Manfred Smith MD (09/05/2020 6:32 AM) [facility] DICTATED AND SIGNED BY: MANFRED SMITH MD DATE: 09/05/2032 CC: JARETH MUJICA MD; KASEY COSTA ~MTH0 0 [][place] [address] IMAGING REPORT Signed PATIENT: MIKAYLA ALEJANDRA MACCOUNT: [id number] : 1980 LOCATION: ER AGE: 40 SEX: F EXAM STATUS: REG ER ORD. PHYSICIAN: JARETH MUJICA MD REASON: UNRESPONSIVE, ALTERED MENTAL STATUS PROCEDURE: CT HEAD AND CERVICAL SPINE WO EXAM: CT HEAD WITHOUT IV CONTRAST CLINICAL HISTORY: Reason: UNRESPONSIVE, ALTERED MENTAL STATUS / Spl. Instructions: / History: COMPARISON: None. TECHNIQUE: Routine CT of the head without contrast. Soft tissues and bone windows were reviewed. PQRS compliance statement - One or more of the following individualized dose reduction techniques were utilized for this study: 1. Automated exposure control 2. Adjustment of the mA and/or kV according to patient size 3. Use of iterative reconstruction technique FINDINGS: There is no evidence of hemorrhage, mass or extra-axial fluid collection. Woods-white differentiation is maintained with no evidence of edema. There is no mass effect or shift of the intracranial structures. The ventricles, basilar cisterns and cortical sulci are normal in size and configuration for the patients stated age. High density focus within the анна, possibly calcification or small developmental venous anomaly, Stable. The cerebellum and brainstem are unremarkable. The calvarium demonstrates no evidence of fracture or focal lesion. There is normal aeration of the visualized paranasal sinuses and mastoid air cells. The visualized portions of the orbits are normal. IMPRESSION: No evidence for acute intracranial process. EXAM: CT CERVICAL SPINE WITHOUT IV CONTRAST CLINICAL HISTORY: Reason: UNRESPONSIVE, ALTERED MENTAL STATUS / Spl. Instructions: / History: COMPARISON: None available. TECHNIQUE: Helical CT of the cervical spine was performed. Axial, coronal and sagittal reformatted images were also performed. PQRS compliance statement - One or more of the following individualized dose reduction techniques were utilized for this study: 1. Automated exposure control 2. Adjustment of the mA and/or kV according to patient size 3. Use of iterative reconstruction technique FINDINGS: Vertebral body heights are preserved. Moderate C4-5 disc height loss. Mild C5-6 and C6-7 disc height loss. Small posterior C4-5, C5-6 as well as C6-7 disc osteophyte complexes. No spondylolisthesis. IMPRESSION: 1. No acute fracture or subluxation. 2. Multilevel degenerative changes of the cervical spine are seen. Electronically signed by: Manfred Smith MD (09/05/2020 4:37 AM) [facility] DICTATED AND SIGNED BY: MANFRED SMITH MD DATE: 09/05/20 0429 CC: JARETH MUJICA MD; KASEY COSTA ~MTH0 0 Heart Score: C/O Chest Pain: No HEART Score for Chest Pain: HEART Score for Chest Pain Response (Comments) Value History Moderately Suspicious 1 ECG Nonspecific Repolarizatio 1 Age < 45 0 Risk Factors 1 or 2 Risk Factors 1 Troponin < Normal Limit 0 Total 3 Risk Factors: Risk Factors: DM, Current or recent (<one month) smoker, HTN, HLP, family history of CAD, obesity. Risk Scores: Score 0 - 3: 2.5% MACE over next 6 weeks - Discharge Home Score 4 - 6: 20.3% MACE over next 6 weeks - Admit for Clinical Observation Score 7 - 10: 72.7% MACE over next 6 weeks - Early Invasive Strategies Course & Med Decision Making: Course & Med Decision Making Pertinent Labs and Imaging studies reviewed. (See chart for details) Pt. given at dosage of Narcan 2 mg IV, - immediately awaken and became agitated. Complaining she was cold. 04: 40. Demanding a bear hugger to get her warm. Procedure note-Central line placement: Patient needed IV access for multiple blood draws and institution of insulin drip as well as hydration. Use of Gown facemask sterile draping and gloves. Left subsequently prepped. Placed a triple-lumen by Seldinger technique and sutured in place with Biopatch. No obvious pneumothorax post central line placement. Have adequate placement of central line on portable x-ray. Critical Care- 90 min. Not including Central line. Pt. presentation, testing and tx. plan discussed with Dr. Shah. Will accept pt at [facility]. ( Critical beds currently available at [facility]- nursing shortage.) Impression: 1. Altered mental status 2. History of polysubstance IV drug abuse ( Drug Screen - tonight + Meth,Narcs and Marijuana) 3. Metabolic and respiratory acidosis pH 7.24 4. Hypothermia- Rectal Temp. 95.7 5. Anemia hemoglobin 11.0 with macrocytic indices of 103 6. DKA-glucose 759 7. De hydration 8. Combined respiratory and metabolic acidosis 9. History of depression 10. BNP 2574 . Discussed presentation testing and treatment plan with will accept pt. at [facility] for further eval. and tx. Will start on insulin qtt, fluid bolus. Cover for infection with Rocephin and Vancomycin. [] Dragon Disclaimer: Dragon Disclaimer: This electronic medical record was generated, in whole or in part, using a voice recognition dictation system. Departure Departure: Referrals: KASEY COSTA (PCP) Jun Disclaimer This chart was dictated in whole or in part using Voice Recognition software in a busy, high-work load, and often noisy Emergency Department environment. It may contain unintended and wholly unrecognized errors or omissions. Dragon Disclaimer This chart was dictated in whole or in part using Voice Recognition software in a busy, high-work load, and often noisy Emergency Department environment. It may contain unintended and wholly unrecognized errors or omissions. JARETH MUJICA MD September 05, 2020 04:07
[2020-09-05] MEDS ORDERED: INSULIN REGULAR VIAL 100 UNIT in IV NORMAL SALINE 100ML 100 ML IV ONE (04:15)
[2020-09-05] MEDS ORDERED: IV NORMAL SALINE 1,000ML 1,000 ML IV ONE ×2 (04:15→04:45)
--- NOTE | 2020-09-05 04:39 | RAD ---
EXAM: CT HEAD WITHOUT IV CONTRAST CLINICAL HISTORY: Reason: UNRESPONSIVE, ALTERED MENTAL STATUS / Spl. Instructions: / History: COMPARISON: None. TECHNIQUE: Routine CT of the head without contrast. Soft tissues and bone windows were reviewed. PQRS compliance statement - One or more of the following individualized dose reduction techniques wer e utilized for this study: 1. Automated exposure control 2. Adjustment of the mA and/or kV according to patient size 3. Use of iterative reconstruction technique FINDINGS: There is no evidence of hemorrhage, mass or extra-axial fluid collection. Woods-white differentiation is maintained with no evidence of edema. There is no mass effect or shift of the intracranial structures. The ventricles, basilar cisterns and cortical sulci are normal in size and configuration for the olvin ents stated age. High density focus within the анна, possibly calcification or small developmental venous anomaly, Sta ble. The cerebellum and brainstem are unremarkable. The calvarium demonstrates no evidence of fracture or focal lesion. There is normal aeration of the visualized paranasal sinuses and mastoid air cells. The visualized portions of the orbits are normal. IMPRESSION: No evidence for acute intracranial process. EXAM: CT CERVICAL SPINE WITHOUT IV CONTRAST CLINICAL HISTORY: Reason: UNRESPONSIVE, ALTERED MENTAL STATUS / Spl. Instructions: / History: COMPARISON: None available. TECHNIQUE: Helical CT of the cervical spine was performed. Axial, coronal and sagittal reformatted im ages were also performed. PQRS compliance statement - One or more of the following individualized dose reduction techniques wer e utilized for this study: 1. Automated exposure control 2. Adjustment of the mA and/or kV according to patient size 3. Use of iterative reconstruction technique FINDINGS: Vertebral body heights are preserved. Moderate C4-5 disc height loss. Mild C5-6 and C6-7 disc height loss. Small posterior C4-5, C5-6 as well as C6-7 disc osteophyte complexes. No spondylolisthesis. IMPRESSION: 1. No acute fracture or subluxation. 2. Multilevel degenerative changes of the cervical spine are seen. Electronically signed by: Manfred Aly MD (09/05/2020 4:37 AM) [facility]
[2020-09-05] MEDS ORDERED: ONDANSETRON PF 4 MG/2 ML VIAL. IVP ONE (04:45)
[2020-09-05] MEDS ORDERED: NALOXONE 2 MG/2 ML DISP.SYRIN. IV ONE ×2 (04:45)
[2020-09-05 04:46] LABS: BGAS PH 7.24 (7.35-7.45)
[2020-09-05 05:14] LABS: BASO % 0 % (0-3); EOS % 0 % (0-3); HEMATOCRIT 36.7 % (36.0-47.0); LYMPH # 1.5 x10^3/uL (1.0-4.8); LYMPH % 17 % (24-48); MEAN CORPUSCULAR HEMOGLOBIN 31 pg (25-35); MEAN CORPUSCULAR HGB CONC 30 g/dL (31-37); MEAN CORPUSCULAR VOLUME 103 fL (79-100); MONO # 0.6 x10^3/uL (0.0-1.1); MONO % 6 % (0-9); NEUT # 6.8 x10^3uL (1.8-7.7); NEUT % 76 % (31-73); PLATELET COUNT 252 x10^3/uL (140-400); RED BLOOD COUNT 3.56 x10^6/uL (3.50-5.40); RED CELL DISTRIBUTION WIDTH 16.9 % (11.5-14.5); WHITE BLOOD COUNT 8.9 x10^3/uL (4.0-11.0)
[2020-09-05 05:23] LABS: CALCIUM 8.8 mg/dL (8.5-10.1); CREATININE 1.3 mg/dL (0.6-1.0); GFR 44.9; POTASSIUM 5.5 mmol/L (3.5-5.1)
[2020-09-05 05:25] LABS: MAGNESIUM 2.1 mg/dL (1.8-2.4)
[2020-09-05 05:27] LABS: BARBITURATES NEG (NEG); BENZODIAZEPINES NEG (NEG); CANNABINOIDS POS (NEG); COCAINE NEG (NEG); METHADONE NEG (NEG); OPIATES POS (NEG); PHENCYCLIDINE NEG (NEG)
[2020-09-05 05:28] VITALS: BP 103/61
[2020-09-05 05:38] LABS: AMPHETAMINE/METHAMPHETAMINE POS (NEG)
[2020-09-05 06:06] LABS: BACTERIA,URINE FEW /HPF (0-FEW); BILIRUBIN,URINE NEG (NEG); CLARITY,URINE CLEAR; COLOR,URINE YELLOW; GLUCOSE,URINE >=1000 mg/dL (NEG); NITRITE,URINE NEG (NEG); RBC,URINE OCC /HPF (0-2); SQUAMOUS EPITHELIAL CELL,UR FEW /LPF; WBC,URINE 0 /HPF (0-4)
[2020-09-05] MEDS ORDERED: IV NORMAL SALINE 100ML 100 ML ONE (06:18)
[2020-09-05] MEDS ORDERED: VANCOMYCIN 750 MG in IV NORMAL SALINE 250ML 250 ML IV ONE (06:30)
[2020-09-05] MEDS ORDERED: VANCOMYCIN 1 GM in IV NORMAL SALINE 250ML 250 ML IV ONE (06:30)
--- NOTE | 2020-09-05 06:34 | RAD ---
EXAM: AP View of the chest DATE: 09/05/2020 6:14 AM INDICATION: Reason: dyspnea, wheezing / Spl. Instructions: / History: COMPARISON: No Prior FINDINGS: Left subclavian catheter tip projects over the distal SVC. Postsurgical changes right lung. The heart is not enlarged. Mediastinal and hilar contours are normal. No focal parenchymal airspace opacity. No pleural effusion or pneumothorax. IMPRESSION: 1. No radiographic evidence for acute cardiopulmonary process. Electronically signed by: Manfred Aly MD (09/05/2020 6:32 AM) [facility]
[2020-09-05] MEDS ORDERED: IV NORMAL SALINE 50ML 50 ML ONE (06:38)
[2020-09-05] MEDS ORDERED: cefTRIAXone SODIUM 1 GM VIAL ONE (06:38)
--- NOTE | 2020-09-05 06:48 | EKG ---
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
== END 2020-09-05 08:34 | disposition short-term general hospital (02) ==
LOC: ER 03:55
DX: T68.XXXA Hypothermia, initial encounter (principal); E87.4 Mixed disorder of acid-base balance; R41.82 Altered mental status, unspecified; D53.9 Nutritional anemia, unspecified; E11.10 Type 2 diabetes mellitus with ketoacidosis without coma; E86.0 Dehydration; F32.9 Major depressive disorder, single episode, unspecified; K21.9 Gastro-esophageal reflux disease without esophagitis; I10 Essential (primary) hypertension; E11.40 Type 2 diabetes mellitus with diabetic neuropathy, unspecified; F17.210 Nicotine dependence, cigarettes, uncomplicated; F15.10 Other stimulant abuse, uncomplicated; Z20.822 Contact with and (suspected) exposure to COVID-19; Z90.49 Acquired absence of other specified parts of digestive tract; Z98.51 Tubal ligation status
CPT/HCPCS: 36415; 36556; 70450; 71045; 72125; 80048; 80307; 81001; 82140; 82550; 82803; 82947; 83605; 83735; 83880; 84484; 85025; 85610; 85730; 87040; 93005; 96361; 96365; 96366; 96368; 96375; 99291; 99292; C9803; J0696; J1815; J2310; J3370; J7030; J7050; U0003

== ENCOUNTER 2021-05-24 23:50 | Emergency (ER) | payer OTHER ==
[~2021-05-24] VITALS: Ht 160 cm; Wt 45.4 kg
--- NOTE | 2021-05-25 00:13 | PHYS DOC ---
Past History Past Medical History: Bronchitis, Diabetes, GERD, Hypertension, Hepatitis, Other Additional Past Medical Histor: neuropathy, meth abuse Past Surgical History: Cholecystectomy, Tubal ligation, Other Additional Past Surgical Histo: lung lobectomy Smoking: Cigarettes Alcohol Use: Occasionally Drug Use: Methamphetamine General Adult EDM: Chief Complaint: HYPOGLYCEMIA HPI: HPI: ".. I guess I did not need the insulin.. I gave myself.. " Patient is a 41 year old female who presents with above hx and complaints of hypoglycemia. Initial glucose check 16, recieve oral glucose, and amp D50 IV. Mental status return to baseline. Pt. denies travel or ill contact. Did get flu vaccination, but not COVID. Pt.has past medical hx. of multiple admissions for DKA and hyperglycemia, polysubstance abuse, GERD, hepatitis, COPD, diabetes, noncompliance, depression, anxiety, cachectic, hypertension, and tobacco use. Patient has undergone tubal ligation lobe ectomy lung and cholecystectomy. Patient follows with Dr. Lobo Hebert. Review of Systems: Review of Systems: Constitutional: Denies fever or chills Eyes: Denies change in visual acuity HENT: Denies nasal congestion or sore throat Respiratory: Denies cough or shortness of breath Cardiovascular: Denies chest pain or edema GI: Denies abdominal pain, nausea, vomiting, bloody stools or diarrhea : Denies dysuria Musculoskeletal: Denies back pain or joint pain Integument: Denies rash Neurologic: Denies headache, focal weakness or sensory changes Endocrine: History of polyuria or polydipsia. Hyporglycemia Lymphatic: Denies swollen glands Psychiatric: History of depression or anxiety Family History: Family History: Noncontributory the presentation tonight Current Medications: Current Meds: See nursing for home meds Allergies: Allergies: Allergies Coded Allergies Type Severity Reaction Last Updated Verified I S O L A T I O N *CONTACT* Allergy Unknown 11/11/18 Yes morphine Adverse Reaction Intermediate Nausea and Vomiting 11/11/18 Yes Physical Exam: PE: Constitutional: Cachectic in appearance, no acute distress, non-toxic appearance. [] HENT: Normocephalic, atraumatic, bilateral external ears normal, oropharynx moist, no oral exudates, nose normal. Edentulous Eyes: PERRLA, EOMI, conjunctiva pale, no discharge. [] Neck: Normal range of motion, no tenderness, supple, no stridor. [] Cardiovascular: Tachycardia heart rate regular rhythm, no murmur [] bedside monitor shows a sinus tachycardia. Lungs & Thorax: Bilateral breath sounds equal apex with scattered wheezes auscultation []Scar. Abdomen: Bowel sounds normal, soft, no tenderness, no masses, no pulsatile masses. Old surgery scars. Skin: Warm, dry, no erythema, no rash. Poor turgor. Back: No tenderness, no CVA tenderness. [] Extremities: No tenderness, no cyanosis, no clubbing, ROM intact, no edema, no cording appreciated. Neurologic: Alert and oriented X 3, moves all extremities on request, has distal sensory, no focal deficits noted. [] Psychologic: Affect flat, , judgement normal, mood normal. [] Current Patient Data: Labs: Laboratory Tests Test 05/25/21 00:07 Glucose (Fingerstick) 230 mg/dL (70-99) H EKG: EKG: My interpretation EKG shows sinus rhythm at 115 bpm. No acute morphology. Does have bimodal P waves left leads. Time of EKG is 1236. [] Radiology/Procedures: Radiology/Procedures: [] Heart Score: C/O Chest Pain: N/A Risk Factors: Risk Factors: DM, Current or recent (<one month) smoker, HTN, HLP, family history of CAD, obesity. Risk Scores: Score 0 - 3: 2.5% MACE over next 6 weeks - Discharge Home Score 4 - 6: 20.3% MACE over next 6 weeks - Admit for Clinical Observation Score 7 - 10: 72.7% MACE over next 6 weeks - Early Invasive Strategies Course & Med Decision Making: Course & Med Decision Making Pertinent Labs and Imaging studies reviewed. (See chart for details) Patient take her diabetic meds on a scheduled regimen. Patient to eat on a scheduled regimen. Patient reminded that if she does not eat regular or take her meds regular there is no way she will be able to control her glucose levels. Patient follow-up primary care. Patient turning concerns. Encourage patient avoid tobacco use encouraged person avoid illicit drug use. Patient keep a record of glucose levels 4 times a day and when she gives herself her diabetic meds.. Show this to her primary care physician. Impression: 1. Hypoglycemia 2. History of diabetes poorly controlled 3. Drug screen positive for methamphetamine 4. Mild dehydration. [] Dragon Disclaimer: Jun Disclaimer: This electronic medical record was generated, in whole or in part, using a voice recognition dictation system. Departure Departure: Referrals: LOBO HEBERT (PCP) Jun Disclaimer This chart was dictated in whole or in part using Voice Recognition software in a busy, high-work load, and often noisy Emergency Department environment. It may contain unintended and wholly unrecognized errors or omissions. JARETH MUJICA MD May 25, 2021 00:12
[2021-05-25 00:25] LABS: BASO % 1 % (0-3); EOS # 0.2 x10^3/uL (0.0-0.7); EOS % 3 % (0-3); HEMATOCRIT 30.9 % (36.0-47.0); HEMOGLOBIN 10.1 g/dL (12.0-15.5); LYMPH # 2.2 x10^3/uL (1.0-4.8); LYMPH % 40 % (24-48); MEAN CORPUSCULAR HEMOGLOBIN 33 pg (25-35); MEAN CORPUSCULAR HGB CONC 33 g/dL (31-37); MEAN CORPUSCULAR VOLUME 100 fL (79-100); MONO # 0.6 x10^3/uL (0.0-1.1); MONO % 12 % (0-9); NEUT # 2.3 x10^3uL (1.8-7.7); NEUT % 44 % (31-73); PLATELET COUNT 209 x10^3/uL (140-400); RED BLOOD COUNT 3.08 x10^6/uL (3.50-5.40); RED CELL DISTRIBUTION WIDTH 16.1 % (11.5-14.5); WHITE BLOOD COUNT 5.3 x10^3/uL (4.0-11.0)
[2021-05-25 00:34] LABS: CALCIUM 8.9 mg/dL (8.5-10.1); CREATININE 0.6 mg/dL (0.6-1.0); GFR 109.1; POTASSIUM 4.1 mmol/L (3.5-5.1)
[2021-05-25 00:47] LABS: MAGNESIUM 1.9 mg/dL (1.8-2.4)
[2021-05-25] MEDS ORDERED: IV RINGERS SOLUTION,LACTATED 1,000 ML IV SCH (01:00)
--- NOTE | 2021-05-25 01:12 | RAD ---
XR CHEST 1V INDICATION: Hypoglycemic, syncope COMPARISON STUDY: 09/05/2020. FINDINGS: Lungs: Normal lung volume. No pulmonary mass or consolidation. The tracheobronchial tree and hilar st ructures are normal. Pleura: No pleural effusion or pneumothorax. Heart and Mediastinum: The cardiomediastinal silhouette is normal. The great vessels of the thorax ar e normal. Bones and Soft Tissues: The bones and soft tissues are within normal limits. IMPRESSION: No acute cardiopulmonary process. Electronically signed by: Rj Ashley MD (05/25/2021 1:10 AM) [facility]
[2021-05-25 01:25] LABS: BARBITURATES NEG (NEG); BENZODIAZEPINES NEG (NEG); CANNABINOIDS NEG (NEG); COCAINE NEG (NEG); METHADONE NEG (NEG); OPIATES POS (NEG); PHENCYCLIDINE NEG (NEG)
[2021-05-25 01:27] LABS: AMPHETAMINE/METHAMPHETAMINE POS (NEG)
[2021-05-25 01:28] LABS: INFLUENZA A PATIENT NEGATIVE (NEGATIVE); INFLUENZA B PATIENT NEGATIVE (NEGATIVE)
[2021-05-25 01:28] LABS: BACTERIA,URINE FEW /HPF (0-FEW); CLARITY,URINE CLEAR; COLOR,URINE YELLOW; GLUCOSE,URINE 100 mg/dL (NEG); NITRITE,URINE NEG (NEG); RBC,URINE 0 /HPF (0-2); SQUAMOUS EPITHELIAL CELL,UR FEW /LPF; UROBILINOGEN,URINE 0.2 mg/dL (0.2 mg/dL); WBC,URINE RARE /HPF (0-4)
[2021-05-25 01:40] VITALS: BP 116/81
--- NOTE | 2021-05-25 02:14 | EKG ---
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
== END 2021-05-25 01:54 | disposition home or self-care (01) ==
LOC: ER 23:50
DX: E11.649 Type 2 diabetes mellitus with hypoglycemia without coma (principal); E86.0 Dehydration; K21.9 Gastro-esophageal reflux disease without esophagitis; I10 Essential (primary) hypertension; F17.210 Nicotine dependence, cigarettes, uncomplicated; F15.10 Other stimulant abuse, uncomplicated; J44.9 Chronic obstructive pulmonary disease, unspecified; F41.9 Anxiety disorder, unspecified; F32.9 Major depressive disorder, single episode, unspecified; Z20.822 Contact with and (suspected) exposure to COVID-19
CPT/HCPCS: 36415; 71045; 80048; 80307; 81001; 82550; 82803; 82947; 83690; 83735; 83880; 84443; 84484; 85025; 87428; 93005; 96360; 99285; J7120

== ENCOUNTER 2021-07-24 03:02 | Emergency (ER) | payer OTHER ==
[~2021-07-24] VITALS: Ht 152.4 cm; Wt 35.4 kg
--- NOTE | 2021-07-24 03:13 | PHYS DOC ---
Past History Past Medical History: Bronchitis, Diabetes, GERD, Hypertension, Hepatitis, Other Additional Past Medical Histor: neuropathy, meth abuse (SHANA BROWN MD) Past Surgical History: Cholecystectomy, Tubal ligation Additional Past Surgical Histo: Partial lung removal (SHANA BROWN MD) Smoking: Cigarettes Alcohol Use: Rarely Drug Use: Methamphetamine (SHANA BROWN MD) Adult General HPI HPI Patient is a 41-year-old female with a past medical history significant for insulin-dependent diabetes who presents to the emergency department with a chief complaint of nausea and vomiting and hyperglycemia over the last day. States she has been checking her blood sugars and they have been high. States she has been taking her insulin. Denies any recent travels, traumas, illnesses, fevers, chest pain, shortness of breath, abdominal pain, dysuria, hematuria, blood in the stool or diarrhea. States she has had her COVID vaccines. Denies any known ill contacts. States that before today she has been eating and drinking nor alyssa for her. (SHANA BROWN MD) Review of Systems Review of Systems Review of systems otherwise unremarkable except noted in HPI (SHANA BROWN MD) Allergies Allergies Allergies Coded Allergies Type Severity Reaction Last Updated Verified I S O L A T I O N *CONTACT* Allergy Unknown 11/11/18 Yes morphine Adverse Reaction Intermediate Nausea and Vomiting 11/11/18 Yes (SHANA BROWN MD) Physical Exam Physical Exam Constitutional: Well developed, well nourished, no acute distress, non-toxic appearance. [] HENT: Normocephalic, atraumatic, bilateral external ears normal, oropharynx dry, no oral exudates, nose normal. [] Eyes: conjunctiva normal, no discharge. [] Neck: Normal range of motion, no tenderness, supple, no stridor. [] Cardiovascular: Sinus tachycardia Lungs & Thorax: Bilateral breath sounds clear to auscultation [] Abdomen: soft, no tenderness, no masses, no pulsatile masses. [] Skin: Warm, dry, no erythema, no rash. [] Back: No tenderness, no CVA tenderness. [] Extremities: No tenderness, no cyanosis, no clubbing, ROM intact, no edema. [] Neurologic: Alert and oriented X 3, normal motor function, normal sensory function, no focal deficits noted. [] Psychologic: Affect normal, judgement normal, mood normal. [] (SHANA BROWN MD) EKG EKG [] (SHANA BROWN MD) Radiology/Procedures Radiology/Procedures [] (SHANA BROWN MD) Heart Score C/O Chest Pain: No Risk Factors: Risk Factors: DM, Current or recent (<one month) smoker, HTN, HLP, family history of CAD, obesity. Risk Scores: Risk Factors: DM, Current or recent (<one month) smoker, HTN, HLP, family history of CAD, obesity. (SHANA BROWN MD) C/O Chest Pain: N/A (HINA ALLAN MD) Course & Med Decision Making Course & Med Decision Making Patient is a 41-year-old female who presents with hyperglycemia, nausea and vomiting Vital signs notable for tachycardia and hypotension. Physical exam noted above. Placed on the monitor with 2 IVs placed by ultrasound and fluid resuscitation begun Given medications for pain, nausea and vomiting. Blood cultures obtained. Started on antibiotics. Started on DKA protocol. Rest of patient care, evaluation and disposition handed off to day team [] (SHANA BROWN MD) Course & Med Decision Making Accepted patient care shift change. Will transfer to [facility] for continued management of DKA. Accepted by Dr. Puentes (HINA ALLAN MD) Jun Disclaimer Dragta Disclaimer This electronic medical record was generated, in whole or in part, using a voice recognition dictation system. (SHANA BROWN MD) Departure Departure: Impression: Primary Impression: DKA (diabetic ketoacidoses) Disposition: 02 SHORT TERM HOSPITAL Condition: GUARDED Referrals: KASEY COSTA (PCP) SHANA BROWN MD Jul 24, 2021 03:13 HINA ALLAN MD Jul 24, 2021 07:48
[2021-07-24] MEDS ORDERED: IV RINGERS SOLUTION,LACTATED 1,000 ML IV ONE ×4 (03:15→09:45)
--- NOTE | 2021-07-24 03:28 | RAD ---
AP chest x-ray HISTORY: Diabetic ketoacidosis. COMPARISON: Chest x-ray May 25, 2019 FINDINGS: Cardiac and mediastinal silhouette are normal. Suture line along the right medial upper lob e apex from partial pneumonectomy presumably stable. No pneumothorax, pulmonary opacities or pleural effusion. Nipple shadow right lateral lung base. Bones unremarkable. IMPRESSION: No acute process. Electronically signed by: Juan Daniel Samayoa MD (07/24/2021 3:26 AM) [facility]
[2021-07-24] MEDS ORDERED: METOCLOPRAMIDE HCL 10 MG/2 ML VIAL. IVP ONE (03:30)
[2021-07-24] MEDS ORDERED: diphenhydrAMINE 50 MG/ML VIAL IVP ONE (03:30)
--- NOTE | 2021-07-24 03:33 | EKG ---
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
[2021-07-24 05:19] LABS: CLARITY,URINE CLEAR; COLOR,URINE YELLOW; GLUCOSE,URINE 500 mg/dL (NEG)
[2021-07-24 05:20] LABS: BACTERIA,URINE 0 /HPF (0-FEW); NITRITE,URINE NEG (NEG); RBC,URINE RARE /HPF (0-2); SQUAMOUS EPITHELIAL CELL,UR OCC /LPF; UROBILINOGEN,URINE 0.2 mg/dL (0.2 mg/dL); WBC,URINE RARE /HPF (0-4)
[2021-07-24 05:26] LABS: BARBITURATES NEG (NEG); BENZODIAZEPINES NEG (NEG); CANNABINOIDS NEG (NEG); COCAINE NEG (NEG); METHADONE NEG (NEG); OPIATES NEG (NEG); PHENCYCLIDINE NEG (NEG)
[2021-07-24 05:29] LABS: AMPHETAMINE/METHAMPHETAMINE POS (NEG)
[2021-07-24 05:29] LABS: SALIC 8.8 mg/dL (2.8-20.0)
[2021-07-24 05:30] LABS: ACETAMIN < 2.0 mcg/mL (10-30)
[2021-07-24 05:33] LABS: BASO # 0.2 x10^3/uL (0.0-0.2); BASO % 3 % (0-3); EOS % 1 % (0-3); HEMATOCRIT 42.3 % (36.0-47.0); HEMOGLOBIN 12.5 g/dL (12.0-15.5); LYMPH # 0.8 x10^3/uL (1.0-4.8); LYMPH % 17 % (24-48); MEAN CORPUSCULAR HEMOGLOBIN 31 pg (25-35); MEAN CORPUSCULAR HGB CONC 30 g/dL (31-37); MEAN CORPUSCULAR VOLUME 106 fL (79-100); MONO # 0.2 x10^3/uL (0.0-1.1); MONO % 5 % (0-9); NEUT # 3.7 x10^3uL (1.8-7.7); NEUT % 75 % (31-73); PLATELET COUNT 271 x10^3/uL (140-400); RED BLOOD COUNT 3.98 x10^6/uL (3.50-5.40); RED CELL DISTRIBUTION WIDTH 16.6 % (11.5-14.5); WHITE BLOOD COUNT 4.9 x10^3/uL (4.0-11.0)
[2021-07-24 05:35] LABS: CALCIUM 9.6 mg/dL (8.5-10.1); CREATININE 1.2 mg/dL (0.6-1.0); POTASSIUM 5.4 mmol/L (3.5-5.1)
[2021-07-24 05:39] LABS: ALBUMIN 3.1 g/dL (3.4-5.0); ALBUMIN/GLOBULIN RATIO 0.9 (1.0-1.7); MAGNESIUM 2.2 mg/dL (1.8-2.4); PHOSPHORUS 6.5 mg/dL (2.6-4.7); TOTAL BILIRUBIN 0.7 mg/dL (0.2-1.0); TOTAL PROTEIN 6.5 g/dL (6.4-8.2)
[2021-07-24] MEDS ORDERED: IV NORMAL SALINE 100ML 100 ML ONE (05:52)
[2021-07-24] MEDS ORDERED: PHENYLEPHRINE INJ 50 MG in IV NORMAL SALINE 250ML 250 ML IV PRN (06:00)
[2021-07-24] MEDS ORDERED: INSULIN REGULAR VIAL 100 UNIT in IV NORMAL SALINE 100ML 100 ML IV PRN (06:00)
[2021-07-24 10:06] VITALS: BP 112/69
[2021-07-24] MEDS ORDERED: FAMOTIDINE 20 MG/2 ML VIAL IVP ONE (10:15)
== END 2021-07-24 10:08 | disposition short-term general hospital (02) ==
LOC: ER 03:02
DX: E11.10 Type 2 diabetes mellitus with ketoacidosis without coma (principal); E11.65 Type 2 diabetes mellitus with hyperglycemia; K21.9 Gastro-esophageal reflux disease without esophagitis; I10 Essential (primary) hypertension; E11.40 Type 2 diabetes mellitus with diabetic neuropathy, unspecified; F17.210 Nicotine dependence, cigarettes, uncomplicated; Z88.8 Allergy status to other drugs, medicaments and biological substances; Z88.5 Allergy status to narcotic agent
CPT/HCPCS: 36415; 71045; 80053; 80307; 80329; 81001; 82330; 82803; 82947; 83605; 83735; 84100; 84484; 85025; 87040; 93005; 96361; 96365; 96366; 96375; 99285; J1200; J1815; J1956; J2765; J3010; J3490; J7120; G0480

== ENCOUNTER 2021-09-04 18:13 | Emergency (ER) | payer OTHER ==
[~2021-09-04] VITALS: Ht 152.4 cm; Wt 35.4 kg
[2021-09-04] MEDS ORDERED: IV RINGERS SOLUTION,LACTATED 1,000 ML IV ONE (18:30)
[2021-09-04] MEDS ORDERED: DEXTROSE 50% 25 GM / 50ML DISP.SYRIN. IV ONE (18:30)
[2021-09-04] MEDS ORDERED: GLUCAGON,HUMAN RECOMBINANT 1 MG KIT. IM ONE (18:30)
[2021-09-04] MEDS ORDERED: IV DEXTROSE 10% 1,000 ML IV ONE (18:45)
[2021-09-04 18:54] LABS: BASO % 1 % (0-3); EOS # 0.1 x10^3/uL (0.0-0.7); EOS % 2 % (0-3); HEMOGLOBIN 12.4 g/dL (12.0-15.5); LYMPH # 3.2 x10^3/uL (1.0-4.8); LYMPH % 57 % (24-48); MEAN CORPUSCULAR HEMOGLOBIN 30 pg (25-35); MEAN CORPUSCULAR HGB CONC 33 g/dL (31-37); MEAN CORPUSCULAR VOLUME 93 fL (79-100); MONO # 0.4 x10^3/uL (0.0-1.1); MONO % 6 % (0-9); NEUT # 1.9 x10^3uL (1.8-7.7); NEUT % 34 % (31-73); PLATELET COUNT 261 x10^3/uL (140-400); RED BLOOD COUNT 4.08 x10^6/uL (3.50-5.40); RED CELL DISTRIBUTION WIDTH 16.1 % (11.5-14.5); WHITE BLOOD COUNT 5.6 x10^3/uL (4.0-11.0)
--- NOTE | 2021-09-04 19:15 | PHYS DOC ---
Past History Past Medical History: Bronchitis, Diabetes, GERD, Hypertension, Hepatitis, Other Additional Past Medical Histor: neuropathy, meth abuse Past Surgical History: Other Additional Past Surgical Histo: Partial lung removal Smoking: Cigarettes Alcohol Use: Occasionally Drug Use: Methamphetamine General Adult EDM: Chief Complaint: HYPOGLYCEMIA HPI: HPI: Patient is a 41-year-old female brought in private vehicle for seizures and possible hypoglycemia. Per the friend who brought the patient she took her insulin and did not eat. He says she had 3 seizures in the car. States she has had similar events in the past. She is a history of type 1 diabetes and frequent DKA. Review of Systems: Review of Systems: All other systems within normal limits except for as noted in the HPI Current Medications: Current Meds: Current Medications Medications (Trade) Dose Ordered Sig/Taryn Start Time Stop Time Status Last Admin Dose Admin Dextrose 1,000 ml @ 75 mls/hr 1X ONCE 09/04/21 18:45 09/05/21 08:04 Dextrose (Dextrose 50%-Water Syringe) 25 gm 1X ONCE 09/04/21 18:30 09/04/21 18:57 DC Glucagon (Glucagen Kit) 1 mg 1X ONCE 09/04/21 18:30 09/04/21 18:57 DC Lactated Ringer's 1,000 ml @ 1,000 mls/hr 1X ONCE 09/04/21 18:30 09/04/21 19:29 Allergies: Allergies: Allergies Coded Allergies Type Severity Reaction Last Updated Verified I S O L A T I O N *CONTACT* Allergy Unknown 11/11/18 Yes morphine Adverse Reaction Intermediate Nausea and Vomiting 11/11/18 Yes Physical Exam: PE: Constitutional: Well developed, well nourished, no acute distress, non-toxic appearance. [] HENT: Normocephalic, atraumatic, bilateral external ears normal, oropharynx moist, no oral exudates, nose normal. [] Eyes: PERRLA, EOMI, conjunctiva normal, no discharge. [] Neck: Normal range of motion, no tenderness, supple, no stridor. [] Cardiovascular:Heart rate regular rhythm, no murmur [] Lungs & Thorax: Bilateral breath sounds clear to auscultation [] Abdomen: Bowel sounds normal, soft, no tenderness, no masses, no pulsatile masses. [] Skin: Warm, dry, no erythema, no rash. [] Back: No tenderness, no CVA tenderness. [] Extremities: No tenderness, no cyanosis, no clubbing, ROM intact, no edema. [] Neurologic: Alert and oriented X 3, normal motor function, normal sensory function, no focal deficits noted. [] Psychologic: Affect normal, judgement normal, mood normal. [] Current Patient Data: Labs: Laboratory Tests Test 09/04/21 18:21 09/04/21 18:22 09/04/21 18:42 POC Venous pH 7.41 (7.32-7.42) POC Venous pCO2 51 mmHg (41-51) POC Venous pO2 89 mmHg (20-40) H Venous Blood HCO3 32 mmol/L (24-28) H POC Venous O2 Saturation (Sander) 97 % POC FiO2 28 White Blood Count 5.6 x10^3/uL (4.0-11.0) Red Blood Count 4.08 x10^6/uL (3.50-5.40) Hemoglobin 12.4 g/dL (12.0-15.5) Hematocrit 38.0 % (36.0-47.0) Mean Corpuscular Volume 93 fL (79-100) Mean Corpuscular Hemoglobin 30 pg (25-35) Mean Corpuscular Hemoglobin Concent 33 g/dL (31-37) Red Cell Distribution Width 16.1 % (11.5-14.5) H Platelet Count 261 x10^3/uL (140-400) Neutrophils (%) (Auto) 34 % (31-73) Lymphocytes (%) (Auto) 57 % (24-48) H Monocytes (%) (Auto) 6 % (0-9) Eosinophils (%) (Auto) 2 % (0-3) Basophils (%) (Auto) 1 % (0-3) Neutrophils # (Auto) 1.9 x10^3uL (1.8-7.7) Lymphocytes # (Auto) 3.2 x10^3/uL (1.0-4.8) Monocytes # (Auto) 0.4 x10^3/uL (0.0-1.1) Eosinophils # (Auto) 0.1 x10^3/uL (0.0-0.7) Basophils # (Auto) 0.0 x10^3/uL (0.0-0.2) Acetone Level Neg (NEG) Glucose (Fingerstick) 163 mg/dL (70-99) H EKG: EKG: Sinus tachycardia, heart rate 102, normal axis, no significant T wave changes. [] Radiology/Procedures: Radiology/Procedures: [] Heart Score: C/O Chest Pain: N/A Risk Factors: Risk Factors: DM, Current or recent (<one month) smoker, HTN, HLP, family history of CAD, obesity. Risk Scores: Score 0 - 3: 2.5% MACE over next 6 weeks - Discharge Home Score 4 - 6: 20.3% MACE over next 6 weeks - Admit for Clinical Observation Score 7 - 10: 72.7% MACE over next 6 weeks - Early Invasive Strategies Course & Med Decision Making: Course & Med Decision Making Patient given dextrose and 0.2 mg Narcan with significant improvement in mental status. Patient is alert and eating. Labs show she is not currently in DKA. Patient states she took her insulin but did not eat. Pain is still much drink use, and had chips in the ER tolerating p.o. Patient says she would like to be discharged. Jun Disclaimer: Jun Disclaimer: This electronic medical record was generated, in whole or in part, using a voice recognition dictation system. Departure Departure: Impression: Primary Impression: Hypoglycemia Disposition: 01 HOME / SELF CARE / HOMELESS Condition: IMPROVED Referrals: KASEY COSTA (PCP) Patient Instructions: Hypoglycemia (Low Blood Sugar) HINA ALLAN MD September 04, 2021 19:15
[2021-09-04 19:23] LABS: ALBUMIN 3.5 g/dL (3.4-5.0); CALCIUM 9.5 mg/dL (8.5-10.1); CREATININE 0.5 mg/dL (0.6-1.0); GFR 134.7; MAGNESIUM 1.8 mg/dL (1.8-2.4); PHOSPHORUS 2.4 mg/dL (2.6-4.7); POTASSIUM 3.3 mmol/L (3.5-5.1); TOTAL BILIRUBIN 0.4 mg/dL (0.2-1.0)
[2021-09-04 19:31] LABS: AMPHETAMINE/METHAMPHETAMINE POS (NEG); BARBITURATES NEG (NEG); BENZODIAZEPINES NEG (NEG); CANNABINOIDS NEG (NEG); COCAINE NEG (NEG); METHADONE NEG (NEG); OPIATES POS (NEG); PHENCYCLIDINE NEG (NEG)
[2021-09-04 19:42] VITALS: BP 112/69
[2021-09-04 19:50] LABS: CLARITY,URINE CLEAR; COLOR,URINE YELLOW; GLUCOSE,URINE >=1000 mg/dL (NEG); NITRITE,URINE NEG (NEG); UROBILINOGEN,URINE 0.2 mg/dL (0.2 mg/dL)
[2021-09-04 19:51] LABS: BACTERIA,URINE 0 /HPF (0-FEW); RBC,URINE OCC /HPF (0-2); SQUAMOUS EPITHELIAL CELL,UR MOD /LPF; WBC,URINE 0 /HPF (0-4)
[2021-09-04 19:52] LABS: AMORPHOUS SEDIMENT,UR PRESENT /HPF
[2021-09-04] MEDS ORDERED: NALOXONE 0.4 MG/ML VIAL. ONE (20:10)
[2021-09-04] MEDS ORDERED: NALOXONE 0.4 MG/ML VIAL. IV ONE (21:00)
[2021-09-04] MEDS ORDERED: NALO4SPR NS (21:29)
[2021-09-05] MEDS ORDERED: LEVO500T9 PO (22:02)
== END 2021-09-04 21:29 | disposition home or self-care (01) ==
LOC: ER 18:13
DX: E10.649 Type 1 diabetes mellitus with hypoglycemia without coma (principal); R56.9 Unspecified convulsions; K21.9 Gastro-esophageal reflux disease without esophagitis; E10.40 Type 1 diabetes mellitus with diabetic neuropathy, unspecified; I10 Essential (primary) hypertension; F17.210 Nicotine dependence, cigarettes, uncomplicated; Z20.822 Contact with and (suspected) exposure to COVID-19; Z88.5 Allergy status to narcotic agent; Z88.8 Allergy status to other drugs, medicaments and biological substances
CPT/HCPCS: 80053; 80307; 81001; 82010; 82550; 82803; 82947; 83605; 83690; 83735; 83880; 84100; 84484; 85025; 85610; 87040; 93005; 96361; 96374; 96375; 99284; C9803; G0480; J2310; J7120; U0003

== ENCOUNTER 2021-09-05 19:07 | Emergency (ER) | payer OTHER ==
[~2021-09-05] VITALS: Ht 152.4 cm; Wt 35.4 kg
[~2021-09-05 19:07] MED LIST changes: +NALO4SPR NS
--- NOTE | 2021-09-05 19:14 | PHYS DOC ---
Past History Past Medical History: Bronchitis, Diabetes, GERD, Hypertension, Hepatitis, Other Additional Past Medical Histor: neuropathy, meth abuse Past Surgical History: Other Additional Past Surgical Histo: Partial lung removal Smoking: Cigarettes Alcohol Use: Occasionally Drug Use: Methamphetamine Adult General Chief Complaint Chief Complaint: HYPOGLYCEMIA HPI HPI Patient is a 41-year-old female who presents via EMS for lethargy and hypoglycemia. Per EMS they were called to the house for lethargy and unresponsiveness and blood sugar was 39. Patient does have a history of type 2 diabetes. EMS states that after administering D5, patient was GCS 15 after a minute or 2 and has been good since. States that she only ate 1 time today but did take her insulin as normal. States she takes approximately 19 units of Levemir at night and then 5 to 8 units of Humalog 3 times a day with meals. States she did take it this morning and did not eat. Denies recent traumas, travels, illnesses, fevers, chest pain, shortness of breath, abdominal pain with nausea, vomiting. States she did use some methamphetamine yesterday. Denies any other alcohol or drug use. Review of Systems Review of Systems Review of systems otherwise unremarkable except noted in HPI Allergies Allergies Allergies Coded Allergies Type Severity Reaction Last Updated Verified I S O L A T I O N *CONTACT* Allergy Unknown 11/11/18 Yes morphine Adverse Reaction Intermediate Nausea and Vomiting 11/11/18 Yes Physical Exam Physical Exam Constitutional: Well developed, well nourished, no acute distress, non-toxic appearance. [] HENT: Normocephalic, atraumatic, bilateral external ears normal, oropharynx moist, no oral exudates, nose normal. [] Eyes: PERRLA, EOMI, conjunctiva normal, no discharge. [] Neck: Normal range of motion, no tenderness, supple, no stridor. [] Cardiovascular:Heart rate regular rhythm, no murmur [] Lungs & Thorax: Bilateral breath sounds clear to auscultation [] Abdomen: Bowel sounds normal, soft, no tenderness, no masses, no pulsatile masses. [] Skin: Warm, dry, no erythema, no rash. [] Back: No tenderness, no CVA tenderness. [] Extremities: No tenderness, no cyanosis, no clubbing, ROM intact, no edema. [] Neurologic: Alert and oriented X 3, normal motor function, normal sensory function, no focal deficits noted. [] Psychologic: Affect normal, judgement normal, mood normal. [] EKG EKG [] Radiology/Procedures Radiology/Procedures [] Heart Score C/O Chest Pain: No Risk Factors: Risk Factors: DM, Current or recent (<one month) smoker, HTN, HLP, family history of CAD, obesity. Risk Scores: Risk Factors: DM, Current or recent (<one month) smoker, HTN, HLP, family history of CAD, obesity. Course & Med Decision Making Course & Med Decision Making Patient is a 41-year-old female who presents with lethargy and hypoglycemia Vital signs initially notable for mild tachycardia which resolved in the ED. Physical exam noted above. Placed on the monitor with IV access established and IV fluid given. D50 ordered but not given as it was not needed. Patient ate 2 meals in the emergency department and blood sugar came up appropriately. Laboratory analysis not concerning. Urinalysis pending as patient did not urinate in the ED, and did not want to wait around to get it. Chest x-ray suggestive of possible community-acquired pneumonia. Started on antibiotics in the ED. Discussed symptom management at home. Discussed antibiotics. Advised cessation of methamphetamine. Advised to keep her appointment in the morning at . Gave strict return precautions to the ED. Patient grateful, verbalized understanding and agreed with plan of discharge. [] Jun Disclaimer Jun Disclaimer This electronic medical record was generated, in whole or in part, using a voice recognition dictation system. Departure Departure: Impression: Primary Impression: Hypoglycemia Additional Impression: Community acquired pneumonia Disposition: HOME / SELF CARE / HOMELESS Condition: STABLE Referrals: KASEY COSTA (PCP) Patient Instructions: Hypoglycemia (Low Blood Sugar), Pneumonia, Adult Additional Instructions: Thank you for coming into the emergency department tonight and allowing us to take care of you. Please read the attached information carefully to go back over some of the things we discussed. Please take your antibiotics for your pneumonia as prescribed and until gone. Please be sure to eat at least 3 small meals a day, take a One-A-Day vitamin and drink plenty of fluids. Please take all your medications as prescribed. Please check your blood sugar frequently throughout the day before taking your insulin. Please do not take your insulin if you do not eat as it could cause low blood sugar as it did today. Please keep your appointment in the morning with . Please follow-up with your [facility] care physician as soon as you can to update on your ED visit and set up a follow-up. Please come back with new or concerning symptoms as discussed. Scripts Levofloxacin (LEVOFLOXACIN) 500 Mg Tablet 1 TAB PO DAILY for PNA, #6 TAB Prov: SHANA BROWN MD 09/05/21 Problem Qualifiers SHANA BROWN MD September 05, 2021 19:14
[2021-09-05] MEDS ORDERED: DEXTROSE 50% 25 GM / 50ML DISP.SYRIN. IV ONE (19:30)
[2021-09-05 21:12] LABS: BASO % 1 % (0-3); EOS # 0.1 x10^3/uL (0.0-0.7); EOS % 1 % (0-3); HEMATOCRIT 33.4 % (36.0-47.0); HEMOGLOBIN 10.9 g/dL (12.0-15.5); LYMPH # 1.9 x10^3/uL (1.0-4.8); LYMPH % 29 % (24-48); MEAN CORPUSCULAR HEMOGLOBIN 31 pg (25-35); MEAN CORPUSCULAR HGB CONC 33 g/dL (31-37); MEAN CORPUSCULAR VOLUME 94 fL (79-100); MONO # 0.4 x10^3/uL (0.0-1.1); MONO % 6 % (0-9); NEUT % 63 % (31-73); PLATELET COUNT 189 x10^3/uL (140-400); RED BLOOD COUNT 3.57 x10^6/uL (3.50-5.40); RED CELL DISTRIBUTION WIDTH 16.6 % (11.5-14.5); WHITE BLOOD COUNT 6.4 x10^3/uL (4.0-11.0)
[2021-09-05 21:27] LABS: CALCIUM 8.7 mg/dL (8.5-10.1); CREATININE 0.5 mg/dL (0.6-1.0); GFR 134.7; MAGNESIUM 1.7 mg/dL (1.8-2.4); POTASSIUM 3.5 mmol/L (3.5-5.1)
[2021-09-05 21:50] VITALS: BP 148/88
--- NOTE | 2021-09-05 21:54 | RAD ---
XR CHEST 1V History: Reason: AMS / Spl. Instructions: / History: Comparison: July 25, 2019 Findings: Hyperinflation. Postoperative changes right upper lung. No pleural effusion. No pneumothorax. Mild il l-defined left basilar opacities. Normal heart size. Metallic density projecting over the right lower chest likely external to the patient. Impression: 1. Mild ill-defined left basilar opacities, may represent atelectasis or developing infiltrates. If persistent clinical concern, recommend follow-up. Electronically signed by: Efren Lantigua DO (09/05/2021 9:52 PM) [facility]
[2021-09-05] MEDS ORDERED: RINGERS LACTATED IV ONE (22:00)
[2021-09-05] MEDS ORDERED: LEVO500T9 PO (22:02)
[2021-09-05] MEDS ORDERED: MAGNESIUM OXIDE 400 MG TABLET PO ONE (22:30)
[2021-09-05] MEDS ORDERED: levoFLOXacin 500 MG TABLET PO ONE (22:30)
== END 2021-09-05 22:10 | disposition home or self-care (01) ==
LOC: ER 19:07
DX: E11.649 Type 2 diabetes mellitus with hypoglycemia without coma (principal); J18.9 Pneumonia, unspecified organism; K21.9 Gastro-esophageal reflux disease without esophagitis; I10 Essential (primary) hypertension; E11.40 Type 2 diabetes mellitus with diabetic neuropathy, unspecified; F17.210 Nicotine dependence, cigarettes, uncomplicated; Z88.5 Allergy status to narcotic agent; Z88.8 Allergy status to other drugs, medicaments and biological substances
CPT/HCPCS: 36415; 71045; 80048; 82803; 82947; 83605; 83690; 83735; 84484; 85025; 93005; 99285